=== PATIENT | female | born 1955 | race Hispanic/Latino ===

== ENCOUNTER 2017-09-25 19:20 | Emergency (ER) | payer OTHER, MEDICARE ==
[~2017-09-25 19:20] MED LIST: ASPI-1181 PO; ERGO500014 PO; ESCI10TA PO; ESOM20CA31 PO; LISI10TA7 PO; PROG100C6 PO; SOLI5 PO; TRAM50TA4 PO
[2017-09-25 20:02] LABS: BASOPHILS % (AUTO) 0.8 % (0.0-5.0); EOSINOPHILS % (AUTO) 4.3 % (0.0-8.0); HEMATOCRIT 41.3 % (36-48); LYMPHOCYTES % (AUTO) 19.6 % (21.0-51.0); MEAN CORPUSCULAR HEMOGLOBIN 30.2 pg (27.0-33.0); MONOCYTES % (AUTO) 4.6 % (3.0-13.0); NEUTROPHILS % (AUTO) 70.7 % (40.0-77.0); PLATELET COUNT (AUTO) 182 K/uL (130-400); RED BLOOD CELL COUNT(AUTO) 4.64 MIL/uL (4.00-5.50); RED CELL DISTRIBUTION WIDTH 13.5 % (11.0-15.5); WHITE BLOOD COUNT (AUTO) 9.7 K/uL (4.8-10.8)
[2017-09-25 20:09] LABS: POTASSIUM 4.1 mmol/L (3.5-5.1)
[2017-09-25] MEDS ORDERED: ASPIRIN 325 MG TABLET ONE (20:21)
[2017-09-25] MEDS ORDERED: NITROGLYCERIN 0.4 MG SL TAB SL ONE (20:21)
[2017-09-25 20:23] LABS: ALBUMIN 2.8 g/dL (3.5-5.0); BILIRUBIN,TOTAL 0.4 mg/dL (0.2-1.0); CREATINE KINASE MB 0.6 ng/mL (0.5-3.6); TOTAL PROTEIN, SERUM 6.5 g/dL (6.0-8.3)
[2017-09-25] MEDS ORDERED: MAGNESIUM HYDROXIDE 30 ML/UDCUP ONE (20:38)
[2017-09-25] MEDS ORDERED: LIDOCAINE HCL 2% VISCOUS 15 ML UDCUP ONE (20:38)
[2017-09-25] MEDS ORDERED: FAMOTIDINE 20MG TAB 20 MG TAB ONE (23:27)
== END 2017-09-26 00:22 | disposition home or self-care (01) ==
LOC: EDH 19:20
DX: K21.0 Gastro-esophageal reflux disease with esophagitis (principal); J06.9 Acute upper respiratory infection, unspecified; I10 Essential (primary) hypertension; F41.9 Anxiety disorder, unspecified; Z90.49 Acquired absence of other specified parts of digestive tract; Z87.891 Personal history of nicotine dependence
CPT/HCPCS: 36415; 71045; 80053; 82550; 82553; 84484; 85025; 87804; 93005; 93970

== ENCOUNTER 2017-12-16 00:13 | Observation (INO) | payer OTHER, MEDICARE ==
[~2017-12-16] VITALS: Ht 157.5 cm; Wt 147.4 kg
[2017-12-16] MEDS ORDERED: ONDANSETRON HCL 4 MG/2 ML VIAL ONE (01:18)
[2017-12-16] MEDS ORDERED: ASPIRIN 325 MG TABLET ONE (01:18)
[2017-12-16] MEDS ORDERED: DiphenhydrAMINE HCL 50 MG/ML VIAL ONE (01:18)
[2017-12-16] MEDS ORDERED: NITROGLYCERIN 1GM/1 INCH PACKET TD ONE (01:19)
[2017-12-16 01:44] LABS: BASOPHILS % (AUTO) 0.8 % (0.0-5.0); EOSINOPHILS % (AUTO) 4.7 % (0.0-8.0); HEMATOCRIT 42.3 % (36-48); LYMPHOCYTES % (AUTO) 18.8 % (21.0-51.0); MEAN CORPUSCULAR HEMOGLOBIN 30.8 pg (27.0-33.0); MEAN CORPUSCULAR HGB CONC 33.7 g/dL (32.0-36.0); MEAN CORPUSCULAR VOLUME 91.2 fL (79-99); MONOCYTES % (AUTO) 6.5 % (3.0-13.0); NEUTROPHILS % (AUTO) 69.2 % (40.0-77.0); NUCLEATED RED BLOOD CELLS 0.1 % (0.0-0.19); PLATELET COUNT (AUTO) 201 K/uL (130-400); RED BLOOD CELL COUNT(AUTO) 4.63 MIL/uL (4.00-5.50); RED CELL DISTRIBUTION WIDTH 13.8 % (11.0-15.5); WHITE BLOOD COUNT (AUTO) 11.5 K/uL (4.8-10.8)
[2017-12-16 01:49] LABS: CREATININE 1.4 mg/dL (0.5-1.5); POTASSIUM 4.6 mmol/L (3.5-5.1)
[2017-12-16 02:02] LABS: ALBUMIN 3.3 g/dL (3.5-5.0); BILIRUBIN,TOTAL 0.3 mg/dL (0.2-1.0); CREATINE KINASE MB 6.4 ng/mL (0.5-3.6); TOTAL PROTEIN, SERUM 7.1 g/dL (6.0-8.3)
[2017-12-16 02:20] LABS: APPEARANCE,URINE Cloudy (CLEAR); BILIRUBIN,URINE Negative (NEGATIVE); COLOR,URINE Yellow (YELLOW); GLUCOSE, URINE (UA) Negative (NEGATIVE); KETONES,URINE Negative (NEGATIVE); LEUKOCYTE ESTERASE ,URINE Small (NEGATIVE); NITRATE,URINE Negative (NEGATIVE); OCCULT BLOOD,URINE Negative (NEGATIVE); PROTEIN,URINE Negative (NEGATIVE)
[2017-12-16 02:27] LABS: AMORPHOUS SEDIMENT,UR Moderate /LPF (None Seen); BACTERIA,URINE Moderate /HPF (None Seen); MUCUS,URINE Moderate LPF (None Seen); RBC,URINE 0-1 /HPF (0-1); SQUAMOUS EPITHELIAL CELL,UR Moderate /HPF (0-2)
[2017-12-16] MEDS ORDERED: SODIUM CHLORIDE 0.9% 1000ML 1,000 ML IV ONE (02:39)
[2017-12-16] MEDS ORDERED: METHYLPREDNISOLONE SOD SUCC 125MG/2ML VIAL ONE (03:34)
[2017-12-16] MEDS: DIPHENHYDRAMINE HCL 25 MG CAPSULE PO SCH ×3 (08:13→21:11)
[2017-12-16] MEDS: METHYLPREDNISOLONE SOD SUCC 40MG/ML 1ML IVP SCH ×2 (08:13→12:00)
[2017-12-16 08:26] VITALS: BP 141/69
[2017-12-16 12:31] VITALS: BP 124/62
[2017-12-16 15:40] LABS: AMPHET/METH SCREEN,URINE NEGATIVE (NEGATIVE); BARBITURATE SCREEN, URINE NEGATIVE (NEGATIVE); BENZODIAZEPINES SCREEN,URINE NEGATIVE (NEGATIVE); CANNABINOID SCREEN,URINE NEGATIVE (NEGATIVE); COCAINE SCREEN,URINE POSITIVE (NEGATIVE); OPIATE SCREEN,URINE NEGATIVE (NEGATIVE); PHENCYCLIDINE SCREEN,URINE NEGATIVE (NEGATIVE)
[2017-12-16 16:00] VITALS: BP 149/74
[2017-12-16 19:25] VITALS: BP 156/76
[2017-12-16 23:20] VITALS: BP 149/85
[2017-12-17 03:45] VITALS: BP 134/70
[2017-12-17] MEDS ORDERED: TRAMADOL HCL 50 MG TABLET PO PRN (05:30)
[2017-12-17 08:42] VITALS: BP 186/69
[2017-12-17] MEDS ORDERED: CITALOPRAM 20 MG TABLET PO SCH (09:00)
[2017-12-17] MEDS ORDERED: LISINOPRIL 10 MG TABLET PO SCH (09:00)
[2017-12-17] MEDS: DIPHENHYDRAMINE HCL 25 MG CAPSULE PO SCH (09:07)
[2017-12-17 12:00] VITALS: BP 169/84
== END 2017-12-17 13:20 | disposition home or self-care (01) ==
LOC: EDH 00:13 → EDHIP 03:36 → 4BH 06:53
PROVIDERS: ADMIT Internal Medicine Infectious Disease; ATTEND Internal Medicine Infectious Disease
DX: T78.1XXA Other adverse food reactions, not elsewhere classified, initial encounter (principal); X58.XXXA Exposure to other specified factors, initial encounter; E66.01 Morbid (severe) obesity due to excess calories; D72.829 Elevated white blood cell count, unspecified; E11.9 Type 2 diabetes mellitus without complications; I10 Essential (primary) hypertension; K21.9 Gastro-esophageal reflux disease without esophagitis; M62.82 Rhabdomyolysis; F14.10 Cocaine abuse, uncomplicated; F32.9 Major depressive disorder, single episode, unspecified; Z96.653 Presence of artificial knee joint, bilateral; Z79.899 Other long term (current) drug therapy
CPT/HCPCS: 36415; 71045; 80053; 80305; 81001; 82550; 82553; 83690; 83880; 84484 ×2; 85025; 93005 ×2; 96374; 99285; G0378 ×34; J1200; J2405; J2920; J2930; J7030; Q0163 ×4

== ENCOUNTER 2018-06-30 16:31 | Emergency (ER) | payer OTHER, MEDICARE ==
[2018-06-30] MEDS ORDERED: ACETAMINOPHEN-CODEINE 300/30MG TAB ONE (17:33)
[2018-06-30 17:39] LABS: BASOPHILS % (AUTO) 0.7 % (0.0-5.0); EOSINOPHILS % (AUTO) 2.3 % (0.0-8.0); HEMATOCRIT 41.7 % (36-48); LYMPHOCYTES % (AUTO) 19.7 % (21.0-51.0); MEAN CORPUSCULAR HEMOGLOBIN 30.2 pg (27.0-33.0); MEAN CORPUSCULAR VOLUME 91.5 fL (79-99); MONOCYTES % (AUTO) 5.7 % (3.0-13.0); NEUTROPHILS % (AUTO) 71.6 % (40.0-77.0); PLATELET COUNT (AUTO) 170 K/uL (130-400); RED BLOOD CELL COUNT(AUTO) 4.55 MIL/uL (4.00-5.50); RED CELL DISTRIBUTION WIDTH 14.1 % (11.0-15.5); WHITE BLOOD COUNT (AUTO) 8.5 K/uL (4.8-10.8)
[2018-06-30] MEDS ORDERED: IBUPROFEN 600 MG TABLET ONE (17:49)
== END 2018-06-30 19:05 | disposition home or self-care (01) ==
LOC: EDH 16:31
DX: N63.20 Unspecified lump in the left breast, unspecified quadrant (principal); Z87.891 Personal history of nicotine dependence; Z88.5 Allergy status to narcotic agent; Z88.2 Allergy status to sulfonamides; Z88.8 Allergy status to other drugs, medicaments and biological substances
CPT/HCPCS: 36415; 76641; 85025; 93005

== ENCOUNTER → 2018-11-20 | Outpatient (CLI) | payer OTHER, MEDICARE | END | disposition home or self-care (01) | LOC: RAH 11:43 | PROVIDERS: ATTEND Internal Medicine | DX: M47.22 Other spondylosis with radiculopathy, cervical region (principal); K80.20 Calculus of gallbladder without cholecystitis without obstruction; M47.815 Spondylosis without myelopathy or radiculopathy, thoracolumbar region; I10 Essential (primary) hypertension | CPT/HCPCS: 71046; 72040 ==

== ENCOUNTER 2018-11-25 07:50 | Day surgery (SDC) | payer OTHER, MEDICARE ==
[~2018-11-25] VITALS: Ht 157.5 cm; Wt 136.1 kg
[2018-11-25] VITALS (8 sets, daily range): BP systolic 142–177; BP diastolic 52–94
[~2018-11-25 07:50] MED LIST changes: +MOBIC; +SODIUM CHLORIDE 0.9% 1000ML 1,000 ML IV ONE; -TRAM50TA4 PO
--- NOTE | 2018-11-25 10:55 | NUR ---
GAS PT TO RESTROOM. EXPRESSED AIR WITH SLIGHT BM. FEELS BETTER
--- NOTE | 2018-11-25 11:00 | NUR ---
HEADACHE PT C/O HEADACHE. STATES SHE DRINKS COFFEE IN AM DAILY. INFORMED Krysten DEE CRNA. NO ORDERS RECEIVED.
== END 2018-11-25 11:25 | disposition home or self-care (01) ==
LOC: DAH 07:50 → ENDO 07:50
PROVIDERS: ATTEND Internal Medicine
DX: K59.00 Constipation, unspecified (principal); K64.1 Second degree hemorrhoids; K57.30 Diverticulosis of large intestine without perforation or abscess without bleeding; Z86.010 Personal history of colon polyps; E11.9 Type 2 diabetes mellitus without complications; G47.33 Obstructive sleep apnea (adult) (pediatric); E66.01 Morbid (severe) obesity due to excess calories; Z88.8 Allergy status to other drugs, medicaments and biological substances; K29.50 Unspecified chronic gastritis without bleeding; F32.9 Major depressive disorder, single episode, unspecified; I10 Essential (primary) hypertension; F41.9 Anxiety disorder, unspecified; Z79.899 Other long term (current) drug therapy; Z98.890 Other specified postprocedural states; Z68.44 Body mass index [BMI] 60.0-69.9, adult
CPT/HCPCS: 43239; 45378; 82948 ×2; 88305; A4606; J7030

== ENCOUNTER 2018-11-26 16:02 | Emergency (ER) | payer OTHER, MEDICARE ==
[~2018-11-26 16:02] MED LIST changes: -SODIUM CHLORIDE 0.9% 1000ML 1,000 ML IV ONE
[2018-11-26] MEDS ORDERED: ONDANSETRON HCL 4 MG/2 ML VIAL ONE (16:16)
[2018-11-26 16:20] LABS: APPEARANCE,URINE Clear (CLEAR); BILIRUBIN,URINE Negative (NEGATIVE); COLOR,URINE Yellow (YELLOW); GLUCOSE, URINE (UA) Negative (NEGATIVE); KETONES,URINE Negative (NEGATIVE); LEUKOCYTE ESTERASE ,URINE Negative (NEGATIVE); NITRATE,URINE Negative (NEGATIVE); OCCULT BLOOD,URINE Nonhemolyzed Trace (NEGATIVE); PROTEIN,URINE Negative (NEGATIVE); UROBILINOGEN,URINE 0.2 mg/dL (0.2-1.0)
[2018-11-26 16:49] LABS: BACTERIA,URINE Few /HPF (None Seen); RBC,URINE 0-1 /HPF (0-1)
[2018-11-26 16:50] LABS: WBC,URINE 0-1 /HPF (0-1)
[2018-11-26] MEDS ORDERED: SODIUM CHLORIDE 0.9% 1000ML 1,000 ML IV ONE (17:11)
[2018-11-26] MEDS ORDERED: KETOROLAC TROMETHAMINE 15MG/ML ONE (17:11)
[2018-11-26 17:17] LABS: BASOPHILS % (AUTO) 0.5 % (0.0-5.0); EOSINOPHILS % (AUTO) 3.5 % (0.0-8.0); HEMATOCRIT 40.6 % (36-48); LYMPHOCYTES % (AUTO) 20.4 % (21.0-51.0); MEAN CORPUSCULAR HEMOGLOBIN 31.6 pg (27.0-33.0); MEAN CORPUSCULAR HGB CONC 34.3 g/dL (32.0-36.0); MONOCYTES % (AUTO) 6.5 % (3.0-13.0); NEUTROPHILS % (AUTO) 69.1 % (40.0-77.0); NUCLEATED RED BLOOD CELLS 0.1 % (0.0-0.19); PLATELET COUNT (AUTO) 153 K/uL (130-400); RED BLOOD CELL COUNT(AUTO) 4.41 MIL/uL (4.00-5.50); RED CELL DISTRIBUTION WIDTH 13.6 % (11.0-15.5); WHITE BLOOD COUNT (AUTO) 7.6 K/uL (4.8-10.8)
[2018-11-26] MEDS ORDERED: SIMETHICONE 80 MG TAB.CHEW ONE (17:23)
[2018-11-26] MEDS ORDERED: HYOSCYAMINE SULFATE 0.125 MG TAB.SUBL SL ONE (17:23)
[2018-11-26 17:27] LABS: CREATININE 0.8 mg/dL (0.5-1.5); POTASSIUM 4.4 mmol/L (3.5-5.1)
[2018-11-26 17:28] LABS: INR 1.05 (0.85-1.15); PARTIAL THROMBOPLASTIN TIME 29.2 SEC (26.3-35.5)
[2018-11-26 17:32] LABS: ALBUMIN 3.1 g/dL (3.5-5.0); BILIRUBIN,TOTAL 0.3 mg/dL (0.2-1.0); TOTAL PROTEIN, SERUM 6.5 g/dL (6.0-8.3)
== END 2018-11-26 18:13 | disposition home or self-care (01) ==
LOC: EDH 16:02
DX: R10.84 Generalized abdominal pain (principal); I10 Essential (primary) hypertension; F41.9 Anxiety disorder, unspecified; Z88.2 Allergy status to sulfonamides; Z88.8 Allergy status to other drugs, medicaments and biological substances; Z90.49 Acquired absence of other specified parts of digestive tract; Z98.890 Other specified postprocedural states
CPT/HCPCS: 36415; 71045; 74176; 80053; 81001; 82550; 83690; 84484; 85025; 85610; 85730; 93005; 96374; 96375; 99285; J1885; J2405; J7030

== ENCOUNTER → 2019-03-10 | Outpatient (CLI) | payer OTHER, MEDICARE ==
[~2019-03-10] MED LIST changes: +PROG100C11 PO; -PROG100C6 PO
== END | disposition home or self-care (01) ==
LOC: OIH 16:03
PROVIDERS: ATTEND Internal Medicine
DX: M19.021 Primary osteoarthritis, right elbow (principal)
CPT/HCPCS: 73070

== ENCOUNTER → 2019-05-28 | Outpatient (CLI) | payer OTHER, MEDICARE | END | disposition home or self-care (01) | LOC: OIH 12:21 | PROVIDERS: ATTEND Internal Medicine | DX: J18.0 Bronchopneumonia, unspecified organism (principal); I70.0 Atherosclerosis of aorta; M47.815 Spondylosis without myelopathy or radiculopathy, thoracolumbar region | CPT/HCPCS: 71046 ==

== ENCOUNTER → 2019-07-15 | Outpatient (CLI) | payer OTHER, MEDICARE | END | disposition home or self-care (01) | LOC: RAH 13:37 | PROVIDERS: ATTEND Internal Medicine | DX: M47.814 Spondylosis without myelopathy or radiculopathy, thoracic region (principal); I10 Essential (primary) hypertension | CPT/HCPCS: 71046 ==

== ENCOUNTER → 2020-10-10 | Outpatient (CLI) | payer OTHER, MEDICARE ==
[~2020-10-10] MED LIST changes: -ASPI-1181 PO; +ASPI-1443 PO; +LISI10TA24 PO; -LISI10TA7 PO
== END | disposition home or self-care (01) ==
LOC: OIH 11:09
PROVIDERS: ATTEND Internal Medicine
DX: D36.13 Benign neoplasm of peripheral nerves and autonomic nervous system of lower limb, including hip (principal); G57.62 Lesion of plantar nerve, left lower limb; G62.9 Polyneuropathy, unspecified; M79.672 Pain in left foot; M77.32 Calcaneal spur, left foot
CPT/HCPCS: 73630

== ENCOUNTER 2022-11-16 23:50 | Emergency (ER) | payer OTHER, MEDICARE ==
[~2022-11-16] VITALS: Ht 157.5 cm; Wt 122.5 kg
[~2022-11-16 23:50] MED LIST changes: +ASCO500T20 PO; +CHOL2000 PO; +ESCI20TA PO; +FURO20TA4 PO; +HYDR-4060 PO; +LISI40TA9 PO; +PANT40TA PO; +SOLI10TA7 PO
[2022-11-17 02:15] VITALS: BP 149/87
[2022-11-17] MEDS ORDERED: HYDROCODONE/ACETAMINOPHEN 5/325 MG TAB PO ONE (06:00)
== END 2022-11-17 07:26 | disposition home or self-care (01) ==
LOC: EDH 23:50
DX: S50.01XA Contusion of right elbow, initial encounter (principal); G89.29 Other chronic pain; M79.601 Pain in right arm; I10 Essential (primary) hypertension; F32.A Depression, unspecified; F41.9 Anxiety disorder, unspecified; J45.909 Unspecified asthma, uncomplicated; Z90.49 Acquired absence of other specified parts of digestive tract; Z79.82 Long term (current) use of aspirin; Z79.899 Other long term (current) drug therapy; Z98.890 Other specified postprocedural states; Z88.5 Allergy status to narcotic agent; Z88.8 Allergy status to other drugs, medicaments and biological substances; W18.39XA Other fall on same level, initial encounter; Y93.01 Activity, walking, marching and hiking; Y92.89 Other specified places as the place of occurrence of the external cause; Y99.8 Other external cause status
CPT/HCPCS: 70450; 73080

== ENCOUNTER 2023-04-03 18:46 | Emergency (ER) | payer OTHER, MEDICARE ==
[~2023-04-03] VITALS: Ht 157.5 cm; Wt 135.2 kg
[2023-04-03] MEDS ORDERED: IBUP-1493 PO (20:23)
[2023-04-03] MEDS ORDERED: MORPHINE 2 MG SYG IM ONE (21:00)
[2023-04-03 21:18] VITALS: BP 154/89; PULSE 63; RESP 16; O2SAT 96
== END 2023-04-03 21:22 | disposition home or self-care (01) ==
LOC: EDH 18:46
DX: M25.511 Pain in right shoulder (principal); F41.9 Anxiety disorder, unspecified; F32.A Depression, unspecified; I10 Essential (primary) hypertension; J45.909 Unspecified asthma, uncomplicated; K21.9 Gastro-esophageal reflux disease without esophagitis; Z79.82 Long term (current) use of aspirin; Z79.890 Hormone replacement therapy; Z79.899 Other long term (current) drug therapy; Z88.5 Allergy status to narcotic agent; Z90.49 Acquired absence of other specified parts of digestive tract
CPT/HCPCS: 99283; 73030; 96372; J2270

== ENCOUNTER → 2023-06-03 | Outpatient (CLI) | payer OTHER, MEDICARE ==
[~2023-06-03] MED LIST changes: +IBUP-1493 PO
== END | disposition home or self-care (01) ==
LOC: OIH 15:42
PROVIDERS: ATTEND Internal Medicine
DX: M19.071 Primary osteoarthritis, right ankle and foot (principal); M19.011 Primary osteoarthritis, right shoulder; M24.9 Joint derangement, unspecified; M25.511 Pain in right shoulder; Z98.890 Other specified postprocedural states
CPT/HCPCS: 73030; 73620

== ENCOUNTER 2023-09-13 06:16 | Emergency (ER) | payer OTHER, MEDICARE ==
[~2023-09-13] VITALS: Ht 157.5 cm; Wt 134.7 kg
[2023-09-13] MEDS: KETOROLAC 30MG VIAL (30MG/ML) IVP ONE (07:43)
[2023-09-13] MEDS: ONDANSETRON 4MG INJ IVP ONE (07:43)
[2023-09-13 07:58] LABS: APPEARANCE,URINE CLEAR (CLEAR); BILIRUBIN,URINE NEGATIVE (NEGATIVE); COLOR,URINE LIGHT-YELLOW (YELLOW); GLUCOSE, URINE (UA) NEGATIVE (NEGATIVE); KETONES,URINE NEGATIVE (NEGATIVE); LEUKOCYTE ESTERASE ,URINE 25 Leu/uL (NEGATIVE); NITRATE,URINE NEGATIVE (NEGATIVE); OCCULT BLOOD,URINE NEGATIVE (NEGATIVE); PROTEIN,URINE NEGATIVE (NEGATIVE); UROBILINOGEN,URINE 0.2 mg/dL (0.2-1.0)
[2023-09-13 07:59] LABS: ADD UA MICROSCOPIC YES
[2023-09-13 08:01] LABS: SQUAMOUS EPITHELIAL CELL,UR RARE /HPF (0-2); WBC,URINE 0-1 /HPF (0-1)
[2023-09-13] MEDS: MORPHINE 4 MG SYG IVP ONE (08:28)
[2023-09-13] MEDS: 0.9%NACL 1000ML 1,000 ML IV ONE (08:28)
[2023-09-13 08:39] LABS: BASOPHILS # (AUTO) 0.03 K/uL (0.00-0.20); BASOPHILS % (AUTO) 0.4 % (0.0-5.0); EOSINOPHILS # (AUTO) 0.24 K/uL (0.00-0.70); EOSINOPHILS % (AUTO) 2.8 % (0.0-8.0); IMMATURE GRANULOCYTE ABSOLUTE 0.04 K/uL (0-1); LYMPHOCYTES # (AUTO) 1.2 K/uL (1.0-4.8); LYMPHOCYTES % (AUTO) 13.7 % (21.0-51.0); MEAN CORPUSCULAR HEMOGLOBIN 28.6 pg (27.0-33.0); MEAN CORPUSCULAR HGB CONC 30.7 g/dL (32.0-36.0); MEAN CORPUSCULAR VOLUME 93.2 fL (79-99); MONOCYTES # (AUTO) 0.6 K/uL (0.1-1.0); MONOCYTES % (AUTO) 6.7 % (3.0-13.0); NEUTROPHILS # (AUTO) 6.5 K/uL (1.8-7.7); NEUTROPHILS % (AUTO) 75.9 % (40.0-77.0); PLATELET COUNT (AUTO) 162 K/uL (130-400); RED BLOOD CELL COUNT(AUTO) 3.22 MIL/uL (4.00-5.50); RED CELL DISTRIBUTION WIDTH 14.8 % (11.0-15.5); WHITE BLOOD COUNT (AUTO) 8.5 K/uL (4.8-10.8)
[2023-09-13 08:56] LABS: BILIRUBIN,TOTAL 0.3 mg/dL (0.2-1.0); CREATININE 1.3 mg/dL (0.5-1.0); POTASSIUM 4.8 mmol/L (3.5-5.1); TOTAL PROTEIN, SERUM 6.3 g/dL (6.0-8.3)
[2023-09-13] MEDS: MORPHINE 2 MG SYG IVP ONE (10:57)
[2023-09-13 13:38] VITALS: BP 133/82; PULSE 95; RESP 18; O2SAT 97
[2023-09-13] MEDS: LIDOCAINE/PRILOCAINE CREAM 5GM TUBE TP ONE (14:19)
[2023-09-13] MEDS: GABAPENTIN 300 MG CAPSULE ONE (14:19)
[2023-09-13] MEDS ORDERED: GABA300C PO (14:24)
[2023-09-13] MEDS ORDERED: VALA100031 PO (14:24)
[2023-09-13] MEDS: LIDOCAINE/PRILOCAINE CREAM 30 GM TUBE TP SCH (14:30)
[2023-09-13] MEDS: GABAPENTIN 300 MG CAPSULE PO SCH (14:30)
== END 2023-09-13 14:55 | disposition home or self-care (01) ==
LOC: EDH 06:16
DX: B02.9 Zoster without complications (principal); R10.32 Left lower quadrant pain; I10 Essential (primary) hypertension; F41.9 Anxiety disorder, unspecified; F32.A Depression, unspecified; I48.91 Unspecified atrial fibrillation; J45.909 Unspecified asthma, uncomplicated; K21.9 Gastro-esophageal reflux disease without esophagitis; Z79.82 Long term (current) use of aspirin; Z79.899 Other long term (current) drug therapy; Z90.49 Acquired absence of other specified parts of digestive tract; Z88.5 Allergy status to narcotic agent; Z88.8 Allergy status to other drugs, medicaments and biological substances; Z90.710 Acquired absence of both cervix and uterus; Z98.890 Other specified postprocedural states
CPT/HCPCS: 99285; 74177; 96374; 96375; 96361; 80053; 83690; 85025; 81001; 36415; 96376; 74176; J2270 ×2; J7030; J2405; J1885; J3490

== ENCOUNTER → 2024-01-22 | Outpatient (CLI) | payer OTHER, MEDICARE ==
[~2024-01-22] MED LIST changes: +GABA300C PO; +VALA100031 PO
[2024-01-22 16:56] LABS: CREATININE 1.6 mg/dL (0.5-1.0); MAGNESIUM 1.8 mg/dL (1.80-2.40); POTASSIUM 4.9 mmol/L (3.5-5.1)
== END | disposition home or self-care (01) ==
LOC: LAB 14:19
PROVIDERS: ATTEND Internal Medicine Cardiovascular Disease
DX: I50.32 Chronic diastolic (congestive) heart failure (principal); I48.3 Typical atrial flutter
CPT/HCPCS: 36415; 80048; 83735; 83880

== ENCOUNTER → 2024-02-03 | Outpatient (CLI) | payer OTHER, MEDICARE ==
[2024-02-03 12:47] LABS: CREATININE 1.5 mg/dL (0.5-1.0)
== END | disposition home or self-care (01) ==
LOC: LAB 10:20
PROVIDERS: ATTEND Internal Medicine Cardiovascular Disease
DX: I50.32 Chronic diastolic (congestive) heart failure (principal)
CPT/HCPCS: 36415; 80048; 83880

== ENCOUNTER 2024-03-05 08:04 | Observation (INO) | payer OTHER, MEDICARE ==
[2024-03-03 10:46] LABS: BASOPHILS # (AUTO) 0.03 K/uL (0.00-0.20); BASOPHILS % (AUTO) 0.5 % (0.0-5.0); EOSINOPHILS # (AUTO) 0.42 K/uL (0.00-0.70); EOSINOPHILS % (AUTO) 6.4 % (0.0-8.0); HEMATOCRIT 37.2 % (36-48); IMMATURE GRANULOCYTE ABSOLUTE 0.02 K/uL (0-1); LYMPHOCYTES # (AUTO) 1.3 K/uL (1.0-4.8); MEAN CORPUSCULAR HGB CONC 29.8 g/dL (32.0-36.0); MEAN CORPUSCULAR VOLUME 90.5 fL (79-99); MONOCYTES # (AUTO) 0.6 K/uL (0.1-1.0); MONOCYTES % (AUTO) 8.5 % (3.0-13.0); NEUTROPHILS # (AUTO) 4.3 K/uL (1.8-7.7); NEUTROPHILS % (AUTO) 64.3 % (40.0-77.0); PLATELET COUNT (AUTO) 209 K/uL (130-400); RED BLOOD CELL COUNT(AUTO) 4.11 MIL/uL (4.00-5.50); RED CELL DISTRIBUTION WIDTH 16.9 % (11.0-15.5); WHITE BLOOD COUNT (AUTO) 6.6 K/uL (4.8-10.8)
[2024-03-03 11:00] LABS: CREATININE 1.2 mg/dL (0.5-1.0); POTASSIUM 4.2 mmol/L (3.5-5.1)
[2024-03-03 11:01] LABS: INR 1.23 (0.85-1.15); PROTHROMBIN TIME 13.1 SEC (9.6-11.6)
[2024-03-03 11:02] LABS: PARTIAL THROMBOPLASTIN TIME 30.5 SEC (26.3-35.5)
[2024-03-03 11:27] VITALS: BP 135/60; PULSE 83; RESP 18; TEMP 97.5
[~2024-03-05] VITALS: Ht 160 cm; Wt 126.0 kg
[2024-03-05] VITALS (16 sets, daily range): BP systolic 91–156; BP diastolic 36–94; PULSE 42–61; RESP 9–23; TEMP 96.6–98.8; O2SAT 94–95
[~2024-03-05 08:04] MED LIST changes: +APIX5TAB PO; -ASCO500T20 PO; -ASPI-1443 PO; -CHOL2000 PO; +DRON400T7 PO; -ERGO500014 PO; -ESCI10TA PO; -ESCI20TA PO; +ESCI20TA38 PO; -ESOM20CA31 PO; +FLUT1BLS3 IH; -GABA300C PO; -HYDR-4060 PO; +HYDR-4068 PO; -IBUP-1493 PO; -LISI10TA24 PO; -LISI40TA9 PO; +MELO-106 PO; +METO-409 PO; -MOBIC; +PHARMACY COMMUNICATION MISC SCH; -PROG100C11 PO; -SOLI5 PO; -VALA100031 PO
[2024-03-05] MEDS: HYDROcodone/acetaMINOPHEN 10/325 MG TAB PO ONE (08:47)
[2024-03-05] MEDS: 0.9%NACL 1000ML 1,000 ML IV ONE (08:47)
[2024-03-05] MEDS ORDERED: HEParin 10,000 UNIT/10ML (1,000 UNIT/ML) VIAL ONE (09:45)
[2024-03-05] MEDS ORDERED: LIDOCAINE HCL 400MG/20ML VIAL ONE (09:45)
[2024-03-05] MEDS ORDERED: HEParin-NS 1,000 UNIT/500 ML 1,000 ML IV ONE (09:46)
[2024-03-05] MEDS ORDERED: MEPERIDINE-PF 25 MG/ML SYG ONE ×2 (10:14→10:41)
[2024-03-05] MEDS ORDERED: MIDAZOLAM HCL 1 MG/ML 2ML VIAL ONE ×3 (10:15→11:47)
[2024-03-05] MEDS ORDERED: ATROPINE 1MG SYG IVP ONE (11:10)
[2024-03-05] MEDS ORDERED: FENTanyl CITRate PF 50 MCG/1 ML 2ML VIAL ONE (11:39)
[2024-03-05] MEDS: HYDROcodone/acetaMINOPHEN 10/325 MG TAB PO PRN (13:53)
[2024-03-05] MEDS: APIXaban 5 MG TABLET PO SCH (20:59)
[2024-03-05] MEDS: furoSEMIDE 20 MG TABLET PO SCH (21:00)
[2024-03-06] VITALS (8 sets, daily range): BP systolic 99–136; BP diastolic 41–86; PULSE 47–54; RESP 17–49; TEMP 98.5–98.9; O2SAT 97
[2024-03-06] MEDS: MELOXICAM 7.5 MG TABLET PO SCH (08:20)
[2024-03-06] MEDS: metOPROLol sucCINATE 50 MG TAB.SR.24H PO SCH (08:22)
[2024-03-06] MEDS: PANTOPrazole 40 MG TAB DR PO SCH (08:24)
[2024-03-06] MEDS ORDERED: METO-409 PO (08:48)
== END 2024-03-06 09:45 | disposition home or self-care (01) ==
LOC: DAH 08:04 → DAHIP 08:05 → 2CV 13:21
PROVIDERS: ADMIT Internal Medicine Cardiovascular Disease; ATTEND Internal Medicine Cardiovascular Disease
DX: I48.3 Typical atrial flutter (principal); I11.0 Hypertensive heart disease with heart failure; I50.32 Chronic diastolic (congestive) heart failure; M54.16 Radiculopathy, lumbar region; F41.9 Anxiety disorder, unspecified; F32.A Depression, unspecified; Z79.899 Other long term (current) drug therapy
CPT/HCPCS: 80048; 85025; 85610; 85730; 36415; 93005 ×3; 93653; 93662; C1894 ×3; C1732 ×2; A4649 ×2; C1766; G0378 ×21; J3010; J3490; J7030; J1644 ×2; J2250 ×3; J2175 ×2; A4215; A4223 ×3; A4222; A4221; A4663; A4216; A4606; 99156; 99157; J0461

== ENCOUNTER → 2024-08-28 | Outpatient (CLI) | payer OTHER, MEDICARE ==
[~2024-08-28] MED LIST changes: +ATOR40TA69 PO; -DRON400T7 PO; -FURO20TA4 PO; +FURO40TA5 PO; +GABA-534 PO; +HYDR-3422 PO; +MELA5CAP PO; -MELO-106 PO; +METO-391 PO; -METO-409 PO; -PANT40TA PO; +PANT40TA54 PO; -PHARMACY COMMUNICATION MISC SCH; -SOLI10TA7 PO
[2024-08-28 22:22] VITALS: PULSE 60; RESP 14
[2024-08-28 23:00] VITALS: PULSE 56; RESP 14
[2024-08-28 23:30] VITALS: PULSE 52; RESP 16
[2024-08-29] VITALS (10 sets, daily range): PULSE 46–60; RESP 12–16
--- NOTE | 2024-08-29 03:56 | NUR ---
REFRESH CELLUVISC OPHTHALMIC GEL 1%,LUMIGAN OPHTHALMIC SOLUTION 0.01%,DOCUSATE SODIUM TAB 100MG,HYDROXYZINE 25 MG, ZOFRAN TAB 4 MG, FERROUS SULFATE TAB ,FOLIC ACID 1MG,VITAMIN B12 1000MCG,MELATONIN 5 MG, ATORVASTATIN CALCIUM 40 MG,LIDOCAINE EXTERNAL PATCH 5%,METOPROLOL SUCCINATE ER ORAL 50 MG, GABAPENTIN ORAL CAPSULE 300MG,ELIQUIS ORAL TAB 5 MG,HYDROCODONE-ACETAMINOPHEN TAB 10-325 MG,IPRATROPIUM-ALBUTEROL INHALATION SOLUTION,SPIRONOLACTONE TAB 25MG, ENTRESTO TAB 49-51 MG,LACTULOSE ORAL SOLUTION 20 MG/30ML Addendum: 08/29/24 at 0407 by CAROL STARR Amended: Links added.
== END | disposition home or self-care (01) ==
LOC: SLP 20:36
PROVIDERS: ATTEND Internal Medicine Cardiovascular Disease
DX: G47.33 Obstructive sleep apnea (adult) (pediatric) (principal)
CPT/HCPCS: 95810

== ENCOUNTER 2024-12-13 20:28 | Emergency (ER) | payer OTHER, MEDICARE ==
[~2024-12-13] VITALS: Ht 157.5 cm; Wt 134.7 kg
[~2024-12-13 20:28] MED LIST changes: -AZIT500T4 PO
--- NOTE | 2024-12-13 20:50 | EKG ---
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
[2024-12-13 20:53] LABS: BASOPHILS # (AUTO) 0.03 K/uL (0.00-0.20); BASOPHILS % (AUTO) 0.5 % (0.0-5.0); EOSINOPHILS # (AUTO) 0.56 K/uL (0.00-0.70); EOSINOPHILS % (AUTO) 8.4 % (0.0-8.0); HEMATOCRIT 38.3 % (36-48); IMMATURE GRANULOCYTE ABSOLUTE 0.02 K/uL (0-1); LYMPHOCYTES # (AUTO) 1.2 K/uL (1.0-4.8); LYMPHOCYTES % (AUTO) 17.7 % (21.0-51.0); MEAN CORPUSCULAR HEMOGLOBIN 30.1 pg (27.0-33.0); MEAN CORPUSCULAR HGB CONC 31.6 g/dL (32.0-36.0); MEAN CORPUSCULAR VOLUME 95.3 fL (79-99); MONOCYTES # (AUTO) 0.5 K/uL (0.1-1.0); MONOCYTES % (AUTO) 7.8 % (3.0-13.0); NEUTROPHILS # (AUTO) 4.4 K/uL (1.8-7.7); NEUTROPHILS % (AUTO) 65.3 % (40.0-77.0); PLATELET COUNT (AUTO) 172 K/uL (130-400); RED BLOOD CELL COUNT(AUTO) 4.02 MIL/uL (4.00-5.50); RED CELL DISTRIBUTION WIDTH 14.6 % (11.0-15.5); WHITE BLOOD COUNT (AUTO) 6.7 K/uL (4.8-10.8)
[2024-12-13 21:01] LABS: CREATININE 1.2 mg/dL (0.5-1.0); POTASSIUM 4.7 mmol/L (3.5-5.1)
[2024-12-13 21:05] LABS: MAGNESIUM 1.8 mg/dL (1.80-2.40)
[2024-12-13 21:14] LABS: B-TYPE NATRIURETIC PEPTIDE 97 pg/mL (0-100)
[2024-12-13 21:50] VITALS: PULSE 74; RESP 22
[2024-12-13] MEDS: IpraTROPium/alBUTERol SULFATE 3 ML SOLUTION IH ONE (21:50)
[2024-12-13] MEDS: Solu-medROL 125MG VIAL IVP ONE (22:10)
[2024-12-13 22:12] LABS: SARS-CoV-2, RNA, NAAT NEGATIVE SARS CoV-2 (NEGATIVE)
--- NOTE | 2024-12-13 22:16 | HMCIMG ---
EXAM: CR Chest, 1 View. CLINICAL HISTORY: Chest Pain COMPARISON: None provided. FINDINGS: LUNGS: There is no mass, infiltrate, or acute pulmonary abnormality. PLEURAL SPACES: No pleural effusion or pneumothorax. MEDIASTINUM: The cardiomediastinal silhouette is within normal limits. BONES: No aggressively appearing osseous lesion. Partially visualized glenohumeral joint replacement implant on the right side. IMPRESSION: No acute cardiopulmonary pathology is evident. /[place]
[2024-12-13 22:20] LABS: INFLUENZA TYPE A Negative For Type A (NEGATIVE); INFLUENZA TYPE B Negative For Type B (NEGATIVE)
--- NOTE | 2024-12-13 22:23 | ERN ---
General Chief Complaint: Shortness of Breath Stated Complaint: SHORTNESS OF BREATH, COUGH, CHEST PAIN Time Seen by MD: 20:34 Source: patient History of Present Illness Initial Comments Patient is a 69-year-old female coming in to be evaluated for cough and congestion. Per patient she was seen by her PCP but has been having a cough and coming in the better. She also states he was recently diagnosed with a asthma. Long with the patient states that she fell couple of days ago and has been having some right shoulder discomfort. Allergies: Coded Allergies: No Known Drug Allergies (Unverified Allergy, Unknown, 07/04/24) Home Meds Active Scripts Prednisone (Prednisone) 20 Mg Tablet, 1 TAB PO BID for 5 Days, #10 TAB 0 Refills Prov:KAREEM SULTANA 10/22/24 Doxycycline Hyclate (Doxycycline Hyclate) 100 Mg Capsule, 1 CAP PO BID for 5 Days, #10 CAP 0 Refills Prov:KAREEM SULTANA 10/22/24 Reported Medications Ferrous Sulfate (Ferrous Sulfate) 325 Mg (65 Mg Iron) Tablet, 1 TAB PO DAILY 10/16/24 Sacubitril/Valsartan (Entresto 49 mg-51 mg Tablet) 49 Mg-51 Mg Tablet, 1 TAB PO BID 10/16/24 Solifenacin Succinate (Vesicare) 10 Mg Tablet, 10 MG PO BID, TAB 10/15/24 Melatonin (Melatonin) 5 Mg Capsule, 1 CAP PO HS PRN for SLEEP for 30 Days, #30 CAP 0 Refills 07/01/24 Hydroxyzine HCl (Hydroxyzine HCl) 50 Mg Tablet, 50 MG PO AD for ANXIETY, TAB 06/30/24 Furosemide (Furosemide) 40 Mg Tablet, 40 MG PO DAILY, TAB 06/30/24 Hydrocodone/Acetaminophen (Hydrocodon-Acetaminophn 10-325) 10 Mg-325 Mg Tablet, 1 TAB PO Q6HPRN PRN for pain for 30 Days, #120 TAB 0 Refills 06/30/24 Gabapentin (Gabapentin) 400 Mg Capsule, 300 MG PO TID, CAP 06/30/24 Atorvastatin Calcium (LIPITOR) 40 Mg Tablet, 40 MG PO DAILY, TAB 06/30/24 Pantoprazole Sodium (Pantoprazole Sodium) 40 Mg Tablet.dr, 1 TAB PO DAILY for 30 Days, #30 TAB 0 Refills 06/30/24 Apixaban (Eliquis) 5 Mg Tablet, 1 TAB PO BID for 30 Days, #60 TAB 0 Refills 04/10/24 Fluticasone/Umeclidin/Vilanter (Trelegy Ellipta 100-62.5-25) 100-62.5 Blst.w.dev, 1 EACH IH Q4HPRN PRN for SHORTNESS OF BREATH 03/03/24 Escitalopram Oxalate (Escitalopram Oxalate) 20 Mg Tablet, 20 MG PO HS, TAB 03/03/24 Past Medical History Past Medical History: A-Fib, Anxiety, Asthma, Depression, GERD, Hypertension Medical History Other: URINARY INCONTINENCE Past Surgical History: Hysterectomy, Cholecystectomy, Other, Surgical History Other: BILAT KNEE Family History Family History: Negative Social History Social History: Negative, Lives alone Female( History) History: Not Applicable : 3 Para: 3 Aborts: 0 ROS Dictation CONSTITUTIONAL: No chills, no fever, no weakness, no diaphoresis, no malaise. HEAD/FACE: No signs of trauma. EENT: No eye pain, no blurred vision, no tearing, no double vision, no ear pain, no ear discharge, no nose pain, no nasal congestion, no throat pain, no throat swelling, no mouth pain. RESPIRATORY: No cough, no orthopnea, SOB, no stridor, no wheezing. CARDIOVASCULAR: No chest pain, no edema, no palpitations, no syncope. GASTROINTESTINAL/ABDOMINAL: No abdominal pain, no constipation, no diarrhea, no nausea, no vomiting. GENITOURINARY: No abnormal discharge, no dysuria, no frequent urination, no hematuria. No complaints of pain in the genitals. MUSCULOSKELETAL: No back pain, no gout, no joint pain, no joint swelling, no muscle pain, no muscle stiffness, no neck pain. INTEGUMENTARY: No change in color, no change in hair/nails, no dryness, no lesion, no lumps, no rash. NEUROLOGICAL/PSYCH: No anxiety, not depressed, no emotional problem, no headache, no numbness, no pre-existing deficit, no history of seizures, no tremors, no weakness. HEMATOLOGIC/LYMPHATIC: Not anemic, no history of blood clots, no apparent bleeding, no bruising, glands not swollen. All Systems Negative, Except as Noted. Physical Exam Physical Exam Dictation VITAL SIGNS: Reviewed. GENERAL APPEARANCE: Alert, oriented x3, no acute distress, obese. HEAD AND FACE: Non-traumatic. EYES: PERRL, pink conjunctivas, eyelid no trauma, anterior chamber clear. EARS: Pinnas intact and no signs of trauma or erythema. Ear canals clear and no discharge. TMs no erythema. NOSE: No discharge, no bleeding. OROPHARYNX: Mouth normal, teeth no caries, tongue pink. Pharynx clear, no erythema. Tonsils no exudates, no abscesses noted. Mucous membrane moist. NECK: Supple, non-tender, no thyromegaly, no masses, no JVD, no bruits. BREAST: Deferred. CHEST: No tenderness, no crepitus, no paradoxical movement, no retractions. LUNGS: Clear, well-ventilated, symmetric, rales, wheezing, no rhonchi, no stridor, good breath sounds bilaterally. HEART: Regular rate, regular rhythm, no murmur, no gallops. VASCULAR: No peripheral edema. ABDOMEN: Soft, positive bowel sounds, nondistended, no guarding, nontender, no rebound, no masses no hepatomegaly, no splenomegaly, no Simon's sign, no hernias. RECTAL: Deferred. GENITAL: Deferred. NEUROLOGICAL: Normal speech, gross motor function intact, gross sensory function intact. MUSCULOSKELETAL: Neck nontender, full range of motion, back nontender, full range of motion. EXTREMITIES: Nontender, full range of motion. SKIN: Color pink, dry, no turgor, no rash, no lacerations, no abrasions, no contusions. LYMPHATICS: Deferred. Results Laboratory and Microbiology Lab and Micro Result Laboratory Tests Test 12/13/24 20:44 12/13/24 21:38 White Blood Count 6.7 K/uL (4.8-10.8) Red Blood Count 4.02 MIL/uL (4.00-5.50) Hemoglobin 12.1 g/dL (12.0-16.0) Hematocrit 38.3 % (36-48) Mean Corpuscular Volume 95.3 fL (79-99) Mean Corpuscular Hemoglobin 30.1 pg (27.0-33.0) Mean Corpuscular Hemoglobin Concent 31.6 g/dL (32.0-36.0) L Red Cell Distribution Width 14.6 % (11.0-15.5) Platelet Count 172 K/uL (130-400) Mean Platelet Volume 11.9 fL (7.5-10.5) H Immature Granulocyte % (Auto) 0.3 % (0-1) Neutrophils (%) (Auto) 65.3 % (40.0-77.0) Lymphocytes (%) (Auto) 17.7 % (21.0-51.0) L Monocytes (%) (Auto) 7.8 % (3.0-13.0) Eosinophils (%) (Auto) 8.4 % (0.0-8.0) H Basophils (%) (Auto) 0.5 % (0.0-5.0) Neutrophils # (Auto) 4.4 K/uL (1.8-7.7) Lymphocytes # (Auto) 1.2 K/uL (1.0-4.8) Monocytes # (Auto) 0.5 K/uL (0.1-1.0) Eosinophils # (Auto) 0.56 K/uL (0.00-0.70) Basophils # (Auto) 0.03 K/uL (0.00-0.20) Absolute Immature Granulocyte (auto 0.02 K/uL (0-1) Nucleated Red Blood Cells 0.0 % (0.0-0.19) Sodium Level 143 mmol/L (136-145) Potassium Level 4.7 mmol/L (3.5-5.1) Chloride Level 105 mmol/L (101-111) Carbon Dioxide Level 32 mmol/L (21-32) Blood Urea Nitrogen 38 mg/dL (7-18) H Creatinine 1.2 mg/dL (0.5-1.0) H Glomerular Filtration Rate Calc 49 mL/min (>90) Random Glucose 119 mg/dL (70-105) H Total Calcium 8.9 mg/dL (8.5-10.1) Magnesium Level 1.80 mg/dL (1.80-2.40) Troponin I High Sensitivity 9 ng/L (4-50) B-Type Natriuretic Peptide 97 pg/mL (0-100) Influenza Type A Antigen Negative For Type A Influenza Type B Antigen Negative For Type B SARS-CoV-2, RNA, NAAT NEGATIVE SARS CoV-2 Labs Reviewed?: Yes EKG/XRAY/US/CT/MRI EKG Comment 12/13/2024 time 8:45 p.m. Ventricular rate 62 Sinus rhythm PA [address] wave elevation or depression X-RAY Comment IMAGING REPORT Signed PATIENT: RONNY KESSLER MR#: [id number] : 1955 SEX: F AGE: 69 LOCATION: [facility] ORDER 34 STATUS: [facility] ER REPORT#: [id number] SERVICE 33 REASON: sob ORDERING PHYSICIAN: BRAVO DYER MD PROCEDURE: CXR1VW - CHEST 1VW EXAM: CR Chest, 1 View. CLINICAL HISTORY: Chest Pain COMPARISON: None provided. FINDINGS: LUNGS: There is no mass, infiltrate, or acute pulmonary abnormality. PLEURAL SPACES: No pleural effusion or pneumothorax. MEDIASTINUM: The cardiomediastinal silhouette is within normal limits. BONES: No aggressively appearing osseous lesion. Partially visualized glenohumeral joint replacement implant on the right side. IMPRESSION: No acute cardiopulmonary pathology is evident. /[place] DICTATED BY: TONYA HUI Jr., MD DATE: 12/13/242314 ELECTRONICALLY SIGNED BY: TONYA HUI Jr., MD DATE: 12/13/242314 MDM MDM: Differential diagnosis: URI, bronchitis, asthma, fall Rationale: Tests considered and ordered secondary to shared decision making include: Previous outside records reviewed: Old ER visits. Risk of complication and/or morbidity or mortality of patient management: None Medications-Per medication reconciliation Need for hospitalization: Patient does not meet criteria for hospitalization. Patient is a 69 female coming in complaining of a cough. Patient states that she was recently seen by her PCP diagnosed with a asthma. She states that the cough worse so she decided to come in for further evaluation. X-rays did not disclose acute findings neither did imaging studies. Patient will be discharged in stable condition with a diagnosis of URI. ED Course Orders Procedure Category Date Status Time Cbc With Differential LAB 12/13/24 Complete 20:34 Chest 1vw RAD 12/13/24 Resulted 20:34 12 Lead Ekg Tracing- EKG 12/13/24 Complete Technical 20:34 Magnesium LAB 12/13/24 Complete 20:34 Troponin I High LAB 12/13/24 Complete Sensitivity 20:34 Basic Metabolic Panel LAB 12/13/24 Complete 20:34 B-Type Natriuretic LAB 12/13/24 Complete Peptide 20:34 Ipratropium/Albuterol PHA 12/13/24 Complete Neb (Duoneb) 21:30 Methylprednisolone PHA 12/13/24 Complete Succ 125mg (Solu-Medr 21:30 Covid Rna Naat LAB 12/13/24 Complete 21:16 Influenza Type A & B, LAB 12/13/24 Complete Rapid 21:16 Shoulder Comp 2+Vws Rt RAD 12/13/24 Taken 22:10 Acetaminophen-Codeine PHA 12/13/24 Complete Elixer (Tylenol-Co 22:30 Albuterol 0.083% PHA 12/13/24 Complete 2.5mg/3ml (Proventil 22:30 12 Lead Ekg Tracing- EKG 12/13/24 Logged Technical 22:24 Sling SARTHAK 12/13/24 In Process 22:30 Albuterol 0.083% PHA 12/13/24 Complete 2.5mg/3ml (Proventil 22:28 Guaifenesin Sug-Fuad PHA 12/13/24 Complete 100 Mg/5ml (Robituss 23:00 Ibuprofen 600 Mg PHA 12/13/24 Complete Tablet (Motrin) 23:00 Current Medications Medications (Trade) Dose Ordered Sig/Joselin Route PRN Reason Start Time Stop Time Status Last Admin Dose Admin Acetaminophen/ Codeine Phosphate (TYLenol-coDEINE (120/12MG 5ML) ELIXIR) 5 ml ONCE ONCE PO 12/13/24 22:30 12/13/24 22:58 DC 12/13/24 22:52 Albuterol (DUOneb) 2 udvial ONCE ONCE IH 12/13/24 21:30 12/13/24 21:31 DC 12/13/24 21:50 Albuterol Sulfate (Proventil 0.083% 2.5mg/3ml) 2.5 mg STK-MED ONCE IH 12/13/24 22:28 12/13/24 22:34 DC Albuterol Sulfate (Proventil 0.083% 2.5mg/3ml) 5 mg ONCE ONCE IH 12/13/24 22:30 12/13/24 22:33 DC 12/13/24 22:47 Guaifenesin (RobiTUSSin SUGAR-FREE 100 MG/ 5 ML UDCUP) 200 mg ONCE ONCE PO 12/13/24 23:00 12/13/24 23:01 DC 12/13/24 23:17 Ibuprofen (moTRIN) 600 mg ONCE ONCE PO 12/13/24 23:00 12/13/24 23:01 DC Methylprednisolone Sodium Succinate (Solu-medROL 125MG) 125 mg ONCE ONCE IVP 12/13/24 21:30 12/13/24 21:31 DC 12/13/24 22:10 Vital Signs Date Time Temp Pulse Resp B/P (MAP) Pulse Ox O2 Delivery O2 Flow Rate FiO2 12/13/24 23:27 98.6 67 18 119/62 97 Room Air* 0 21 12/13/24 22:47 75 21 12/13/24 21:50 74 22 12/13/24 21:02 98.6 74 22 108/81 98 Room Air* 0 21 12/13/24 20:33 98.8 65 20 96 Room Air 0 DX & DISP Disposition: Discharge Departure Impression: Primary Impression: Acute asthma flare Additional Impression: Right shoulder strain Condition: Stable Scripts Azithromycin (Azithromycin) 500 Mg Tablet 1 TAB PO DAILY for 5 Days, #5 TAB 0 Refills Prov: BRAVO DYER MD 12/13/24 Additional Instructions: You have been reviewed in the emergency department at [facility] after presenting with chest pain. After considering your history, your risk factors, your EKG and your blood test troponins, have been found to be at very low risk less than (1 in 100) of having a major adverse cardiac event (like heart attack) in the near future. In the " low risk" group, the risks of doing further tests and treatment as the inpatient outweighs the benefits. In many patients in the low risk group for the test of any sort or unnecessary, however he should discuss this further with his general practitioner who will understand the medical and personal backgrounds better. Because we have never declared you" no risk" we would suggest. 1 returning for medical review if you have further episodes of chest pain/arm pain or other concerning symptoms like dizziness, collapse, palpitations or shortness of breath. 2. Following up with your local doctor who will consider the need for further testing and will also ensure that any modifiable risk factors you may have for heart disease are optimally managed. Patient will be discharged in stable condition at the moment discharge patient states , no chest pain Referrals: MERT KENNEDY MD (PCP) Time of Disposition: 23:35 BRAVO DYER MD Dec 13, 2024 22:23
[2024-12-13 22:47] VITALS: PULSE 75; RESP 21
[2024-12-13] MEDS: ALBUTEROL 0.083% 2.5 MG/3 ML INH IH ONE ×2 (22:47)
[2024-12-13] MEDS: acetaMINOPHEN/coDEINE 120/12MG 5ML PO ONE (22:52)
[2024-12-13] MEDS: guaiFENesin SUGAR-FREE 100 MG/5 ML UDCUP PO ONE (23:17)
[2024-12-13] MEDS: ibuPROFEN 600 MG TABLET PO ONE (23:18)
[2024-12-13 23:27] VITALS: BP 119/62; PULSE 67; RESP 18; TEMP 98.6; O2SAT 97
[2024-12-13] MEDS ORDERED: AZIT500T4 PO (23:35)
--- NOTE | 2024-12-13 23:41 | HMCIMG ---
EXAM: CR right Shoulder, 2 View. CLINICAL HISTORY: Status post fall. COMPARISON: None provided. FINDINGS: BONES: No acute fracture or aggressively appearing osseous lesion. JOINTS: No dislocation. There is a right shoulder replacement with an intact metallic implant. Acromioclavicular osteoarthritis. SOFT TISSUES: The soft tissues are unremarkable. IMPRESSION: No acute abnormality was evident on examination of the right shoulder. There is a right shoulder replacement with an intact metallic implant. Acromioclavicular osteoarthritis. /[place]
== END 2024-12-13 23:56 | disposition home or self-care (01) ==
LOC: EDH 20:28
DX: S46.911A Strain of unspecified muscle, fascia and tendon at shoulder and upper arm level, right arm, initial encounter (principal); J45.909 Unspecified asthma, uncomplicated; I48.91 Unspecified atrial fibrillation; F32.A Depression, unspecified; F41.9 Anxiety disorder, unspecified; I10 Essential (primary) hypertension; Z79.01 Long term (current) use of anticoagulants; Z79.52 Long term (current) use of systemic steroids; Z79.899 Other long term (current) drug therapy; Z90.49 Acquired absence of other specified parts of digestive tract; Z90.710 Acquired absence of both cervix and uterus; Z96.611 Presence of right artificial shoulder joint; Z20.822 Contact with and (suspected) exposure to COVID-19; X58.XXXA Exposure to other specified factors, initial encounter; Y93.89 Activity, other specified; Y92.89 Other specified places as the place of occurrence of the external cause; Y99.8 Other external cause status
CPT/HCPCS: 99285; 96374; 71045; 87635; 83735; 84484; 80048; 83880; 85025; 87804 ×2; 36415; 73030; 93005; 94640 ×2; J2919

== ENCOUNTER → 2024-12-13 | Outpatient (CLI) | payer OTHER, MEDICARE ==
[~2024-12-13] MED LIST changes: +AZIT500T4 PO; +DOXY100C5 PO; +FERR-72 PO; -METO-391 PO; +PRED20TA3 PO; +SACU1TAB7 PO; +SOLI10TA PO
== END | disposition home or self-care (01) ==
LOC: SLP 20:14
PROVIDERS: ATTEND Internal Medicine Cardiovascular Disease
DX: G47.33 Obstructive sleep apnea (adult) (pediatric) (principal)

== ENCOUNTER 2025-04-20 08:32 | Observation (INO) | payer OTHER, MEDICAID ==
[2025-04-20] VITALS (7 sets, daily range): BP systolic 127; BP diastolic 67; PULSE 60–70; RESP 20–24; TEMP 98.3; O2SAT 94–98
[~2025-04-20] VITALS: Ht 157.5 cm; Wt 143.0 kg
[~2025-04-20 08:32] MED LIST changes: +ALBU90AE IH; +CEFP200T14 PO; -DOXY100C5 PO; +ESCI-8 PO; -ESCI20TA38 PO; -FLUT1BLS3 IH; -HYDR-4068 PO; -MELA5CAP PO; -PRED20TA3 PO; -SACU1TAB7 PO
[2025-04-20 09:05] LABS: IMMATURE GRANULOCYTE ABSOLUTE 0.02 K/uL (0-1); NUCLEATED RED BLOOD CELLS 0.0 % (0.0-0.19); PLATELET COUNT (AUTO) 139 K/uL (130-400); RED BLOOD CELL COUNT(AUTO) 3.90 MIL/uL (4.00-5.50); RED CELL DISTRIBUTION WIDTH 13.2 % (11.0-15.5); WHITE BLOOD COUNT (AUTO) 6.5 K/uL (4.8-10.8)
[2025-04-20 09:23] LABS: ASPARTATE AMINOTRANSFERASE 20.0 U/L (10-37); CREATINE KINASE, TOTAL 83.0 U/L (21-232); CREATININE 1.1 mg/dL (0.5-1.0); GLOMERULAR FILTR. RATE CALC 54.0 mL/min (>90); GLUCOSE,RANDOM 114.0 mg/dL (70-105); SODIUM SERUM 139.0 mmol/L (136-145); TOTAL PROTEIN, SERUM 6.5 g/dL (6.0-8.3); UREA NITROGEN, BLOOD 43.0 mg/dL (7-18)
[2025-04-20] MEDS: 0.9% NACL 500ML IV.SOLN 500 ML IV ONE (09:33)
[2025-04-20 10:13] LABS: COVID19 (SARS ANTIGEN RAPID) PRESUMPTIVE NEGATIVE (NEGATIVE); INFLUENZA TYPE A Negative For Type A (NEGATIVE); INFLUENZA TYPE B Negative For Type B (NEGATIVE)
--- NOTE | 2025-04-20 10:33 | EKG ---
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
--- NOTE | 2025-04-20 10:35 | HMCIMG ---
EXAM: CR Chest, 1 View. CLINICAL HISTORY: cough COMPARISON: 12/13. FINDINGS: LUNGS: The lungs show no infiltrate or other acute finding. PLEURAL SPACES: No pleural effusion or pneumothorax. MEDIASTINUM: Cardiac size and mediastinal contours within normal limits. BONES: Right shoulder arthroplasty. IMPRESSION: 1. No acute cardiopulmonary findings. 2. Right shoulder arthroplasty. /[place]
[2025-04-20] MEDS ORDERED: ARTIFICAL TEARS SOL 15 ML OP PRN (11:00)
[2025-04-20] MEDS ORDERED: MAG/ALUM/SIMETH 30 ML UDCUP PO PRN (11:00)
[2025-04-20] MEDS ORDERED: NITROGLYCERIN 0.4 MG SL TAB SL PRN (11:00)
[2025-04-20] MEDS ORDERED: LIDOCAINE HCL 2% VISCOUS 30 ML, MAG/ALUM/SIMETH 30ML 30 ML, DICYCLOMINE HCL 20 MG PO PRN (11:00)
--- NOTE | 2025-04-20 11:02 | ERN ---
ED Note History of Present Illness Stated Complaint: SOB Chief Complaint: Shortness of Breath Time Seen by MD: 08:36 Dictation: 69-year-old female presenting to the emergency department with a history of asthma for shortness of breath and wheezing which began over the past two days patient reports cough and subjective fevers and nasal congestion clear not on any home O2. no abdominal pain. Allergies: Coded Allergies: hydromorphone (Unverified Allergy, Intermediate, 03/06/25) Home Meds Active Scripts Cefpodoxime Proxetil (Cefpodoxime Proxetil) 200 Mg Tablet, 1 TAB PO BID for 10 Days, #20 TAB 0 Refills Prov:SALDIVARSHEA AGACNP 03/08/25 Reported Medications Albuterol Sulfate (Proair Respiclick) 90 Mcg Aer.pow.ba, 90 MCG IH AD PRN for SHORTNESS OF BREATH 03/05/25 Escitalopram Oxalate (Escitalopram Oxalate) 10 Mg Tablet, 1 TAB PO DAILY for 30 Days, #30 TAB 0 Refills 03/05/25 Ferrous Sulfate (Ferrous Sulfate) 325 Mg (65 Mg Iron) Tablet, 1 TAB PO DAILY 10/16/24 Solifenacin Succinate (Vesicare) 10 Mg Tablet, 10 MG PO BID, TAB 10/15/24 Hydroxyzine HCl (Hydroxyzine HCl) 50 Mg Tablet, 50 MG PO AD for ANXIETY, TAB 06/30/24 Furosemide (Furosemide) 40 Mg Tablet, 40 MG PO DAILY, TAB 06/30/24 Gabapentin (Gabapentin) 400 Mg Capsule, 300 MG PO TID, CAP 06/30/24 Atorvastatin Calcium (LIPITOR) 40 Mg Tablet, 40 MG PO DAILY, TAB 06/30/24 Pantoprazole Sodium (Pantoprazole Sodium) 40 Mg Tablet.dr, 1 TAB PO DAILY for 30 Days, #30 TAB 0 Refills 06/30/24 Apixaban (Eliquis) 5 Mg Tablet, 1 TAB PO BID for 30 Days, #60 TAB 0 Refills 04/10/24 Past Medical History Past Medical History: Asthma, Bronchitis, Other Additional Past Medical Hx: URINARY INCONTINENCE Surgical History: Appendectomy, Hysterectomy, Cholecystectomy Surgical History Other: BILAT KNEE Family History: Negative Social History: Negative, Lives alone History: Not Applicable : 3 Para: 3 Aborts: 0 Review of System Dictation Constitutional: Per HPI Eyes: Negative for injury, pain,redness, and discharge ENT: Per HPI Cardiovascular: Negative for chest pain, palpitations, and edema Respiratory: Per HPI Abdomen/GI: Negative for abdominal pain, nausea, vomiting, diarrhea, and constipation Back: Negative for injury and pain : Negative for injury, bleeding and discharge MS/Extremity: Negative for injury and deformity Skin: Negative for rash, and discoloration Neuro: Negative for headache, weakness, numbness, tingling, and seizure Psych: Negative for suicide ideation, homicidal ideation, and hallucinations Initial Vital Sign VS Vital Signs Date Time Temp Pulse Resp B/P (MAP) Pulse Ox O2 Delivery O2 Flow Rate FiO2 04/20/25 08:38 98.4 69 18 167/86 97 Room Air 0 04/20/25 10:11 100 Physical Exam Dictation General: awake, alert, appears anxious Head/Face: Normocephalic, atraumatic Eyes: PERRL, EOMI, vision at baseline ENT: oral cavity clear, TMs clear, no signs of infection Neck: Trachea midline, supple, no nuchal rigidity Cardiovascular: RRR, normal S1/S2, No MRGs, no JVD Respiratory: Diminished bilateral breath sounds with wheezing and tachypnea Abdomen: Soft, non-tender, non-distended, normal bowel sounds, no guarding or rebound. Skin: Warm, dry, normal turgor, no rash MS/Extremity: Pulses equal, no cyanosis, neurovascular intact, FROM Neuro: COAx4, GCS 15, strength 5/5, CN 2-12 intact, normal cerebellar exam, normal gait, Psych: Normal behavior, mood, and affect normal Results (Laboratory/Radiology) Laboratory/Radiology Laboratory Tests Test 04/20/25 08:54 04/20/25 09:42 White Blood Count 6.5 K/uL (4.8-10.8) Red Blood Count 3.90 MIL/uL (4.00-5.50) L Hemoglobin 11.8 g/dL (12.0-16.0) L Hematocrit 37.2 % (36-48) Mean Corpuscular Volume 95.4 fL (79-99) Mean Corpuscular Hemoglobin 30.3 pg (27.0-33.0) Mean Corpuscular Hemoglobin Concent 31.7 g/dL (32.0-36.0) L Red Cell Distribution Width 13.2 % (11.0-15.5) Platelet Count 139 K/uL (130-400) Mean Platelet Volume 12.5 fL (7.5-10.5) H Immature Granulocyte % (Auto) 0.3 % (0-1) Neutrophils (%) (Auto) 62.6 % (40.0-77.0) Lymphocytes (%) (Auto) 24.1 % (21.0-51.0) Monocytes (%) (Auto) 6.4 % (3.0-13.0) Eosinophils (%) (Auto) 6.3 % (0.0-8.0) Basophils (%) (Auto) 0.3 % (0.0-5.0) Neutrophils # (Auto) 4.1 K/uL (1.8-7.7) Lymphocytes # (Auto) 1.6 K/uL (1.0-4.8) Monocytes # (Auto) 0.4 K/uL (0.1-1.0) Eosinophils # (Auto) 0.41 K/uL (0.00-0.70) Basophils # (Auto) 0.02 K/uL (0.00-0.20) Absolute Immature Granulocyte (auto 0.02 K/uL (0-1) Nucleated Red Blood Cells 0.0 % (0.0-0.19) Sodium Level 139 mmol/L (136-145) Potassium Level 3.9 mmol/L (3.5-5.1) Chloride Level 103 mmol/L (101-111) Carbon Dioxide Level 30 mmol/L (21-32) Blood Urea Nitrogen 43 mg/dL (7-18) H Creatinine 1.1 mg/dL (0.5-1.0) H Glomerular Filtration Rate Calc 54 mL/min (>90) Random Glucose 114 mg/dL (70-105) H Lactic Acid Level 1.8 mmol/L (0.8-2.5) Total Calcium 8.4 mg/dL (8.5-10.1) L Total Bilirubin 0.5 mg/dL (0.2-1.0) Direct Bilirubin 0.2 mg/dL (0.0-0.3) Aspartate Amino Transf (AST/SGOT) 20 U/L (10-37) Alanine Aminotransferase (ALT/SGPT) 20 U/L (12-78) Alkaline Phosphatase 206 U/L (50-136) H Total Creatine Kinase 83 U/L (21-232) # Troponin I High Sensitivity 12 ng/L (4-50) Total Protein 6.5 g/dL (6.0-8.3) Albumin 3.0 g/dL (3.5-5.0) L Influenza Type A Antigen Negative For Type A Influenza Type B Antigen Negative For Type B SARS-CoV-2 Antigen (Rapid) PRESUMPTIVE NEGATIVE Labs Reviewed?: Yes EKG Comment: Heart rate 59 normal sinus rhythm normal intervals no STEMI ED Course ED Course Orders Procedure Category Date Status Time Influenza Type A & B, LAB 04/20/25 Complete Rapid 08:39 12 Lead Ekg Tracing- EKG 04/20/25 Complete Technical 08:39 Basic Metabolic Panel LAB 04/20/25 Complete 08:39 Cbc With Differential LAB 04/20/25 Complete 08:39 Creatine Kinase, Total LAB 04/20/25 Complete 08:39 Hepatic Function Panel LAB 04/20/25 Complete 08:39 Troponin I High LAB 04/20/25 Complete Sensitivity 08:39 Chest 1vw RAD 04/20/25 Resulted 08:39 Covid19 (Sars Antigen LAB 04/20/25 Complete Rapid) 08:39 Blood Cult ROBERTO 04/20/25 In Process 08:39 Lactic Acid LAB 04/20/25 Complete 08:39 Methylprednisolone PHA 04/20/25 Complete Succ 125mg (Solu-Medr 08:39 Ipratropium/Albuterol PHA 04/20/25 Complete Neb (Duoneb) 08:39 0.9% Nacl 500ml PHA 04/20/25 Complete Iv.Soln (Ns 500ml 09:00 Arterial Blood Gas RT 04/20/25 Transmitted 09:43 Fentanyl Citrate Pf PHA 04/20/25 Complete 0.05 Mg/Ml (Fentanyl 09:43 Ondansetron 4mg Inj PHA 04/20/25 Complete (Zofran 4mg Inj) 09:43 Bipap Settings RT 04/20/25 Transmitted 09:44 Vital Signs(Adult CPOE 04/20/25 Transmitted Hospitalist) 10:52 Daily Weights CPOE 04/20/25 Transmitted 10:52 I&O Q Shift CPOE 04/20/25 Transmitted 10:52 Fever: Blood Cx X 2 CPOE 04/20/25 Transmitted 10:52 Famotidine 20mg Tab PHA 04/20/25 Transmitted (Pepcid 20mg Tab) 21:00 Diphenhydramine Hcl PHA 04/20/25 Transmitted (Benadryl Cap) 11:00 Diphenhydramine Hcl PHA 04/20/25 Transmitted (Benadryl Inj) 11:00 Acetaminophen 325 Tab PHA 04/20/25 Transmitted (Tylenol 325mg Tab 11:00 Acetaminophen 325 Tab PHA 04/20/25 Transmitted (Tylenol 325mg Tab 11:00 Ondansetron 4mg Inj PHA 04/20/25 Transmitted (Zofran 4mg Inj) 11:00 Zolpidem Tartrate 5 PHA 04/20/25 Transmitted Mg Tab (Ambien) 11:00 Mag/Alum/Simeth 30ml PHA 04/20/25 Transmitted (Maalox Plus 30ml) 11:00 Lactulose 20 Gm/30 Ml PHA 04/20/25 Transmitted Udcup (Constulose 11:00 Nitroglycerin 0.4mg PHA 04/20/25 Transmitted Sl Tab (Nitrostat) 11:00 Guaifenesin-Dm PHA 04/20/25 Transmitted 200/20mg 10ml 11:00 Ipratropium/Albuterol PHA 04/20/25 Transmitted Neb (Duoneb) 12:00 Procalcitonin LAB 04/20/25 Transmitted 10:52 Robitussin 200mg Q4h PHA 04/20/25 Transmitted Prn Cough 11:00 Imodium 2mg Po Q6h Prn PHA 04/20/25 Transmitted 11:00 Colace 100mg Po Bid PHA 04/20/25 Transmitted PRN 11:00 Miralax 17gm Po Daily PHA 04/20/25 Transmitted PRN 11:00 Xanax 0.5mg Po Q6h Prn PHA 04/20/25 Transmitted 11:00 Gi Cocktail 20ml Po PHA 04/20/25 Transmitted Q6h Prn 11:00 Artifical Tears 1drop PHA 04/20/25 Transmitted Q2h Prn 11:00 Cepacol 1 Lozenge Po PHA 04/20/25 Transmitted Q2h Prn 11:00 Admit Orders ADM 04/20/25 Transmitted 10:52 Activity: Bedrest CPOE 04/20/25 Transmitted With Brp 10:52 Consistent Carb DIET 04/20/25 Transmitted Lunch Advance Diet As CPOE 04/20/25 Transmitted Tolerated To: 10:52 Initiate SARTHAK 04/20/25 Transmitted Hyperglycemia Protoco 10:52 Current Medications Medications (Trade) Dose Ordered Sig/Joselin Route PRN Reason Start Time Stop Time Status Last Admin Dose Admin Albuterol (DUOneb) 1 udvial ONCE STAT IH 04/20/25 08:39 04/20/25 08:44 DC 04/20/25 09:04 Fentanyl Citrate (FENTanyl CITRate PF 50 MCG/ 1 ML 2ML VIAL) 50 mcg ONCE STAT IVP 04/20/25 09:43 04/20/25 09:46 DC 04/20/25 10:05 Methylprednisolone Sodium Succinate (Solu-medROL 125MG) 125 mg ONCE STAT IVP 04/20/25 08:39 04/20/25 08:44 DC 04/20/25 09:33 Ondansetron HCl (zoFRAN 4MG INJ) 4 mg ONCE STAT IVP 04/20/25 09:43 04/20/25 09:46 DC 04/20/25 10:05 Sodium Chloride 500 ml @ 0 mls/hr ONCE ONCE IV 04/20/25 09:00 04/20/25 09:01 DC 04/20/25 09:33 Vital Signs Date Time Temp Pulse Resp B/P (MAP) Pulse Ox O2 Delivery O2 Flow Rate FiO2 04/20/25 10:11 98.6 57 18 135/41 100 Partial Non-Rebreather+ 10 100 04/20/25 09:05 61 20 04/20/25 08:38 98.4 69 18 167/86 97 Room Air 0 Medical Decision Making MDM MDM: Differential diagnosis: Rationale: Tests considered and ordered secondary to shared decision making include: labs, ECG and radiology Previous outside records reviewed: Old ER visits. Risk of complication and/or morbidity or mortality of patient management: None Medications-Per medication reconciliation Need for hospitalization: Patient does meet criteria for hospitalization. Need for emergency major/minor surgery: No There are no social concerns with this patient. Prescription drug management Prescriptions will include symptomatic care Patient's prior external medical records from other ER visits were reviewed by me as indicated. Prior testing and results from previous visits were reviewed. Prior tests were taken into account with medical decision making and resource utilization, independent historian/historians were used to obtain complete medical history. I independently interpreted the test that were performed, results were reviewed by me and considered findings on radiology if ordered. Medical management and examination interpretation discussions were had by me with other qualified healthcare professionals as indicated for the patient's care. 69-year-old female with acute asthma exacerbation respiratory distress given nebs and pain meds for back pain, initial workup stable symptoms improving ad mitting for further care and evaluation. Critical Care Note Comment(s) Total critical care time was 33 minutes. Excluding time for procedures. Management of critically ill patient with concern for acute decompensation. M anagement included interpretation of laboratory values and imaging, hemodynamics, time for consultation with consultants and admitting physician. DX & DISP Disposition: Inpatient Departure Impression: Primary Impression: URI (upper respiratory infection) Additional Impressions: Acute asthma exacerbation, Acute respiratory distress Condition: Stable Referrals: MERT KENNEDY MD (PCP) PAULO RODRIGUEZ MD Apr 20, 2025 11:02
--- NOTE | 2025-04-20 13:28 | NUR ---
PT IS REQUESTING IV PAIN MEDICATION STATING THAT THE PO MEDICATIONS HURT HER ESOPHAGUS AND "SWOLLEN PANCREAS".INFORMED STRAP BUCKLER REBEKA. AWAITING ORDERS.
--- NOTE | 2025-04-20 13:44 | NUR ---
I INFORMED PATIENT THAT SHE CAN HAVE HER USUAL HYDROCODONE/TYLENOL PER ORDER NOW OR WAIT A FEW MORE MINUTES UNTIL EMERGENCY ROOM REGISTERED NURSE RESPONDS. PT DECLINED THE PO MEDICATION.
--- NOTE | 2025-04-20 14:11 | NUR ---
DCP:HOME Pt currently lives alone in her home. Pt receives $120 in SNAP benefits. Pt does have a walker and cane in her home that she uses to ambulate. Pt's sister Emily Munoz [phone] and brother are her providers. As per pt they work with her 30 hrs a week and they assist her with all ADLs, home management, and meals. PCP is Dr. Tramaine Parra and uses [facility] for any RX needs. At DC pt will want to go home and family can assist with transportation.
--- NOTE | 2025-04-20 14:28 | HP ---
[facility] HISTORY & PHYSICAL Date Patient Seen: Apr 20, 2025 Time of Visit: 14:27 Supervising Physician: Dr Damián Odonnell Primary Care Physician: [ ] Outpatient Specialists: [ ] Inpatient Consults: [ ] PROBLEM LIST: Obesity hyperventilation syndrome untreated Morbid obesity BMI 52.5 AFib on apixaban CKD stage 3 Hyperglycemia in a type 2 diabetic HPI: Patient is a 69-year-old female who presented to the emergency department reporting shortness of breath, progressive cough and wheezing starting 2 days ago. She has a past medical history of morbid obesity, hypertension, hyperlipidemia, atrial fibrillation. Patient denies any home O2 or CPAP at night. Patient was placed on nasal cannula then advance to a non-rebreather however patient refused. Time of evaluation she is satting 92% on room air. Labs are pending. On exam she has 2+ pitting edema to the lower extremities. Chest x-ray shows some vascular congestion we are pending a BNP. Along with a D-dimer an ultrasounds of the lower extremities. We are pending an ABG. Patient to be admitted to [facility] with telemetry. PAST MEDICAL HX: see above PAST SURGICAL HX: noncontributory SOCIAL HISTORY: No tobacco, ETOH, or illicit drug use Coded Allergies: hydromorphone (Unverified Allergy, Intermediate, 03/06/25) REVIEW OF SYSTEMS: 12 point ROS reviewed with patient. Pertinent positives mentioned above. Otherwise negative. PHYSICAL EXAM: GENERAL: alert, weak, awake oriented x 3 HEENT: EOMI, Sclera non icteric, moist mucosa NECK: Supple, no JVD, trachea midline LUNGS: Clear breath sounds bilaterally. No wheezes HEART: Regular rate and rhythm. Normal S1 and S2, without murmurs ABD: Abdomen soft, nontender. Bowel sounds present EXT: No clubbing cyanosis or edema NEURO: Alert and oriented to person, follows commands Vital Signs (last 8hr) Date Time Temp Pulse Resp B/P (MAP) Pulse Ox O2 Delivery O2 Flow Rate FiO2 04/20/25 11:48 98.6 66 18 147/41 98 Nasal Cannula* 4 N/A Partial Non-Rebreather+ 04/20/25 11:41 66 24 N/Cannula Low lpm 2.0 04/20/25 11:41 66 24 04/20/25 10:11 98.6 57 18 135/41 100 Partial Non-Rebreather+ 10 100 04/20/25 09:05 61 20 04/20/25 08:38 98.4 69 18 167/86 97 Room Air 0 LABS: Hematology Labs: Test 04/20/25 08:54 Range/Units White Blood Count 6.5 4.8-10.8 K/uL Red Blood Count 3.90 L 4.00-5.50 MIL/uL Hemoglobin 11.8 L 12.0-16.0 g/dL Hematocrit 37.2 36-48 % Mean Corpuscular Volume 95.4 79-99 fL Mean Corpuscular Hemoglobin 30.3 27.0-33.0 pg Mean Corpuscular Hemoglobin Concent 31.7 L 32.0-36.0 g/dL Red Cell Distribution Width 13.2 11.0-15.5 % Platelet Count 139 130-400 K/uL Mean Platelet Volume 12.5 H 7.5-10.5 fL Immature Granulocyte % (Auto) 0.3 0-1 % Neutrophils (%) (Auto) 62.6 40.0-77.0 % Lymphocytes (%) (Auto) 24.1 21.0-51.0 % Monocytes (%) (Auto) 6.4 3.0-13.0 % Eosinophils (%) (Auto) 6.3 0.0-8.0 % Basophils (%) (Auto) 0.3 0.0-5.0 % Neutrophils # (Auto) 4.1 1.8-7.7 K/uL Lymphocytes # (Auto) 1.6 1.0-4.8 K/uL Monocytes # (Auto) 0.4 0.1-1.0 K/uL Eosinophils # (Auto) 0.41 0.00-0.70 K/uL Basophils # (Auto) 0.02 0.00-0.20 K/uL Absolute Immature Granulocyte (auto 0.02 0-1 K/uL Nucleated Red Blood Cells 0.0 0.0-0.19 % Chemistry Labs: Test 04/20/25 08:54 Range/Units Sodium Level 139 136-145 mmol/L Potassium Level 3.9 3.5-5.1 mmol/L Chloride Level 103 101-111 mmol/L Carbon Dioxide Level 30 21-32 mmol/L Blood Urea Nitrogen 43 H 7-18 mg/dL Creatinine 1.1 H 0.5-1.0 mg/dL Glomerular Filtration Rate Calc 54 >90 mL/min Random Glucose 114 H 70-105 mg/dL Lactic Acid Level 1.8 0.8-2.5 mmol/L Total Calcium 8.4 L 8.5-10.1 mg/dL Total Bilirubin 0.5 0.2-1.0 mg/dL Direct Bilirubin 0.2 0.0-0.3 mg/dL Aspartate Amino Transf (AST/SGOT) 20 10-37 U/L Alanine Aminotransferase (ALT/SGPT) 20 12-78 U/L Alkaline Phosphatase 206 H 50-136 U/L Total Creatine Kinase 83 # 21-232 U/L Troponin I High Sensitivity 12 4-50 ng/L B-Type Natriuretic Peptide 99 0-100 pg/mL Total Protein 6.5 6.0-8.3 g/dL Albumin 3.0 L 3.5-5.0 g/dL Procalcitonin < 0.05 L 0.05-0.5 ng/mL DIAGNOSTICS / RADIOLOGY RESULTS: [ ] PLAN Patient pending admit to [facility] with telemetry We are encouraging patient to use her O2 Pending ABG, patient to be evaluated for hypoventilation syndrome. Likely needs home CPAP or greater Pending a BNP, if elevated we will resume Lasix D-dimer in ultrasound lower extremities are pending Patient will need a 6 minute walk prior to discharge Sliding scale insulin Diabetic diet NEURO: Minimize central acting medications as possible. Maintain fall precautions, adequate lighting during the day PULMONARY: Supplemental 02 as needed. Maintain aspiration precautions at all times CARDIOVASCULAR: Follow hemodynamics. Vital signs per facility protocol GI & NUTRITION: Continue with nutritional support. Continue stool softeners and laxatives as needed. KIDNEYS & ELECTROLYTES: Strict monitoring of intake, output and overall fluid balance. Avoid nephrotoxic medications to the extent possible. Medications to be dosed according to renal function. Monitor electrolytes and replace as needed ENDOCRINE: Maintain blood glucose between 100-180 at all times. Hypoglycemia protocol in place INFECTIOUS DISEASE: Trend temperature, WBC and procalcitonin level Follow cultures, deescalate antibiotics as soon as possible. Panculture if new onset fever ONCOLOGY/HEMATOLOGY/COAGULATION: Monitor for s/s of bleeding Monitor hemoglobin, coagulation studies as needed SKIN: Pressure ulcer prevention per facility protocol Specialty mattress ORTHO/REHAB: Continue PT/OT Prophylaxis: Continue GI and DVT prophylaxis Code Status: Full Resuscitation Disposition: TBD Other: Total patient care time exceeds 35 minutes excluding all procedures. EMILIANO STALEY PAC Apr 20, 2025 14:27
[2025-04-20] MEDS: DICYCLOMINE HCL 10 MG/5 ML ML PO ONE (15:09)
[2025-04-20] MEDS: LIDOCAINE HCL 2% VISCOUS 15 ML UDCUP PO ONE (15:10)
[2025-04-20] MEDS: MAG/ALUM/SIMETH 30 ML UDCUP PO ONE (15:10)
--- NOTE | 2025-04-20 15:43 | NUR ---
REPORT GIVEN TO NURSE BRENDA
[2025-04-20] MEDS: FAMOTIDINE 20MG TAB PO SCH (20:16)
[2025-04-20] MEDS: BENZOCAINE/MENTH/CETYLPYRD CL 1 EACH LOZENGE MM PRN (20:16)
[2025-04-20] MEDS: guaiFENesin-DM 200/20MG 10ML PO PRN (22:21)
[2025-04-21] VITALS (12 sets, daily range): BP systolic 114–155; BP diastolic 50–69; PULSE 62–80; RESP 16–22; TEMP 97.6–98.1; O2SAT 95–97
--- NOTE | 2025-04-21 12:31 | PN ---
[facility] PROGRESS NOTE Date Patient Seen: Apr 21, 2025 Time of Visit: 12:22 Supervising Physician: [Dr Odonnell Primary Care Physician: [ ] Outpatient Specialists: [ ] Inpatient Consults: [ ] PROBLEM LIST: Obesity hyperventilation syndrome untreated Class 3 Morbid obesity BMI 52.5 AFib on apixaban CKD stage 3 Hyperglycemia in a type 2 diabetic General anxiety disorder History of depression Hyperlipidemia INTERVAL HISTORY: Patient is a 69-year-old female who presented to the emergency department reporting shortness of breath, progressive cough and wheezing starting 2 days ago. She has a past medical history of morbid obesity, hypertension, hyperlipidemia, atrial fibrillation. Patient denies any home O2 or CPAP at night. Patient was placed on nasal cannula then advance to a non-rebreather however patient refused. Time of evaluation she is satting 92% on room air. Labs are pending. On exam she has 2+ pitting edema to the lower extremities. Chest x-ray shows some vascular congestion we are pending a BNP. Along with a D-dimer an ultrasounds of the lower extremities. We are pending an ABG. Patient to be admitted to [facility] with telemetry. 04/21 - Today patient is seen sitting up in bed continues to complain of shortness on breath, progressive cough and dyspnea with minimal exertion. Patient reports her wheezing is much improved. Currently patient's O2 sat is 97% on room air. No acute changes reported overnight. Requesting ABGs. We are still pending D-dimer and lower extremity Dopplers. PLAN: Telemetry monitoring Supplemental oxygen as needed Patient currently on room air BiPAP nightly and p.r.n. Pending ABG Pending BNP, if elevated we will resume Lasix Pending D-dimer results Pending bilateral lower extremity ultrasound Dopplers Resume Eliquis 6 minute walk test prior to discharge Diabetic diet PT evaluate and treat Out of bed to chair and ambulate Dispo: Home once medically stable for discharge REVIEW OF SYSTEMS: 12 point ROS reviewed with patient. Pertinent positives mentioned above. Otherwise negative. PHYSICAL EXAM: GENERAL: alert, weak, awake oriented x 3 HEENT: EOMI, Sclera non icteric, moist mucosa NECK: Supple, no JVD, trachea midline LUNGS: Clear breath sounds bilaterally. No wheezes HEART: Regular rate and rhythm. Normal S1 and S2, without murmurs ABD: Abdomen soft, nontender. Bowel sounds present EXT: No clubbing cyanosis or edema NEURO: Alert and oriented to person, follows commands Vital Signs (last 8hr) Date Time Temp Pulse Resp B/P (MAP) Pulse Ox O2 Delivery O2 Flow Rate FiO2 04/21/25 11:25 64 20 N/A Room Air 21 04/21/25 11:23 64 20 04/21/25 08:00 98.1 80 18 114/55 97 Room Air 04/21/25 06:57 67 20 N/A Room Air 04/21/25 06:53 67 21 LABS: Hematology Labs: Test 04/20/25 08:54 Range/Units White Blood Count 6.5 4.8-10.8 K/uL Red Blood Count 3.90 L 4.00-5.50 MIL/uL Hemoglobin 11.8 L 12.0-16.0 g/dL Hematocrit 37.2 36-48 % Mean Corpuscular Volume 95.4 79-99 fL Mean Corpuscular Hemoglobin 30.3 27.0-33.0 pg Mean Corpuscular Hemoglobin Concent 31.7 L 32.0-36.0 g/dL Red Cell Distribution Width 13.2 11.0-15.5 % Platelet Count 139 130-400 K/uL Mean Platelet Volume 12.5 H 7.5-10.5 fL Immature Granulocyte % (Auto) 0.3 0-1 % Neutrophils (%) (Auto) 62.6 40.0-77.0 % Lymphocytes (%) (Auto) 24.1 21.0-51.0 % Monocytes (%) (Auto) 6.4 3.0-13.0 % Eosinophils (%) (Auto) 6.3 0.0-8.0 % Basophils (%) (Auto) 0.3 0.0-5.0 % Neutrophils # (Auto) 4.1 1.8-7.7 K/uL Lymphocytes # (Auto) 1.6 1.0-4.8 K/uL Monocytes # (Auto) 0.4 0.1-1.0 K/uL Eosinophils # (Auto) 0.41 0.00-0.70 K/uL Basophils # (Auto) 0.02 0.00-0.20 K/uL Absolute Immature Granulocyte (auto 0.02 0-1 K/uL Nucleated Red Blood Cells 0.0 0.0-0.19 % Chemistry Labs: Test 04/20/25 08:54 Range/Units Sodium Level 139 136-145 mmol/L Potassium Level 3.9 3.5-5.1 mmol/L Chloride Level 103 101-111 mmol/L Carbon Dioxide Level 30 21-32 mmol/L Blood Urea Nitrogen 43 H 7-18 mg/dL Creatinine 1.1 H 0.5-1.0 mg/dL Glomerular Filtration Rate Calc 54 >90 mL/min Random Glucose 114 H 70-105 mg/dL Lactic Acid Level 1.8 0.8-2.5 mmol/L Total Calcium 8.4 L 8.5-10.1 mg/dL Total Bilirubin 0.5 0.2-1.0 mg/dL Direct Bilirubin 0.2 0.0-0.3 mg/dL Aspartate Amino Transf (AST/SGOT) 20 10-37 U/L Alanine Aminotransferase (ALT/SGPT) 20 12-78 U/L Alkaline Phosphatase 206 H 50-136 U/L Total Creatine Kinase 83 # 21-232 U/L Troponin I High Sensitivity 12 4-50 ng/L B-Type Natriuretic Peptide 99 0-100 pg/mL Total Protein 6.5 6.0-8.3 g/dL Albumin 3.0 L 3.5-5.0 g/dL Procalcitonin < 0.05 L 0.05-0.5 ng/mL DIAGNOSTICS / RADIOLOGY RESULTS: PATIENT: RONNY KESSLER MR#: [id number] : 1955 SEX: F AGE: 69 LOCATION: [facility] ORDER 0 STATUS: [facility] REPORT#: [id number] SERVICE 0839 REASON: cough ORDERING PHYSICIAN: PAULO RODRIGUEZ MD PROCEDURE: CXR1VW - CHEST 1VW EXAM: CR Chest, 1 View. CLINICAL HISTORY: cough COMPARISON: 12/13. FINDINGS: LUNGS: The lungs show no infiltrate or other acute finding. PLEURAL SPACES: No pleural effusion or pneumothorax. MEDIASTINUM: Cardiac size and mediastinal contours within normal limits. BONES: Right shoulder arthroplasty. IMPRESSION: 1. No acute cardiopulmonary findings. 2. Right shoulder arthroplasty. /[place] DICTATED BY: DARNELL HENDRIX MD DATE: 04/20/251133 ELECTRONICALLY SIGNED BY: DARNELL HENDRIX MD DATE: 04/20/25 113 PLAN Patient pending admit to [facility] with telemetry We are encouraging patient to use her O2 Pending ABG, patient to be evaluated for hypoventilation syndrome. Likely needs home CPAP or greater Pending a BNP, if elevated we will resume Lasix D-dimer in ultrasound lower extremities are pending Patient will need a 6 minute walk prior to discharge Sliding scale insulin Diabetic diet NEURO: Minimize central acting medications as possible. Maintain fall precautions, adequate lighting during the day PULMONARY: Supplemental 02 as needed. Maintain aspiration precautions at all times CARDIOVASCULAR: Follow hemodynamics. Vital signs per facility protocol GI & NUTRITION: Continue with nutritional support. Continue stool softeners and laxatives as needed. KIDNEYS & ELECTROLYTES: Strict monitoring of intake, output and overall fluid balance. Avoid nephrotoxic medications to the extent possible. Medications to be dosed according to renal function. Monitor electrolytes and replace as needed ENDOCRINE: Maintain blood glucose between 100-180 at all times. Hypoglycemia protocol in place INFECTIOUS DISEASE: Trend temperature, WBC and procalcitonin level Follow cultures, deescalate antibiotics as soon as possible. Panculture if new onset fever ONCOLOGY/HEMATOLOGY/COAGULATION: Monitor for s/s of bleeding Monitor hemoglobin, coagulation studies as needed SKIN: Pressure ulcer prevention per facility protocol Specialty mattress ORTHO/REHAB: Continue PT/OT Prophylaxis: Continue GI and DVT prophylaxis Code Status: Full Resuscitation Disposition: Home once medically stable for discharge ATTESTATION BY PHYSICIAN I reviewed the documentation, medical decision making, and treatment plan as noted by the mid-level provider above. I agree with the findings and plan of care. Damián Odonnell MD, ECTOR N FNP Apr 21, 2025 12:31
--- NOTE | 2025-04-21 15:00 | NUR ---
CRITICAL RESULT PATIENT WITH D-DIMER OF 1887. EDWARD RON NP AWARE. VQ SCAN AND BLE VENOUS DOPPLER U/S ORDERED.
--- NOTE | 2025-04-21 16:08 | NUR ---
RAD NUCLEAR MEDICINE SPOKE TO NURSE BRENDA, PATIENT NEEDS A NEW IV STARTED SHE WILL CONTACT ME ONCE IT IS READY.
--- NOTE | 2025-04-21 17:52 | NUR ---
RAD V/Q OF 175HRS [facility] STATES NO IV PLACEMENT. DG EXAM ON HOLD TILL FURTHER NOTICE. DG
[2025-04-22] VITALS (12 sets, daily range): BP systolic 115–134; BP diastolic 50–78; PULSE 58–70; RESP 18–24; TEMP 97.3–98.1; O2SAT 94–100
[2025-04-22 04:32] LABS: NUCLEATED RED BLOOD CELLS 0.0 % (0.0-0.19); PLATELET COUNT (AUTO) 121.0 K/uL (130-400); RED BLOOD CELL COUNT(AUTO) 3.35 MIL/uL (4.00-5.50); RED CELL DISTRIBUTION WIDTH 13.6 % (11.0-15.5); WHITE BLOOD COUNT (AUTO) 5.8 K/uL (4.8-10.8)
[2025-04-22 05:02] LABS: CREATININE 1.4 mg/dL (0.5-1.0); GLOMERULAR FILTR. RATE CALC 41.0 mL/min (>90); GLUCOSE,RANDOM 128.0 mg/dL (70-105); PHOSPHORUS 4.2 mg/dL (2.5-4.9); SODIUM SERUM 138.0 mmol/L (136-145); UREA NITROGEN, BLOOD 49.0 mg/dL (7-18)
--- NOTE | 2025-04-22 05:50 | HMCIMG ---
EXAMINATION: SPECTRAL DOPPLER ULTRASOUND EXAMINATION OF THE BILATERAL LOWER EXTREMITY VEINS. CLINICAL HISTORY: Edema. COMPARISON: Prior ultrasound dated 09/25/2017. TECHNIQUE: Real-time ultrasound scan of the veins of the bilateral lower extremity with color Doppler flow, spectral waveform analysis and compression. FINDINGS: DEEP VEINS: The common femoral, superficial femoral, and popliteal veins are echolucent and compressible. There is normal color Doppler flow throughout. The visualized calf veins appear patent. SUPERFICIAL VEINS: The greater saphenous veins are patent and compressible. SOFT TISSUES: No popliteal fossa cyst or other abnormalities. IMPRESSION: No deep venous thrombosis evident in the bilateral lower extremity. No superficial thrombophlebitis in the bilateral lower extremity. /[place]
--- NOTE | 2025-04-22 11:47 | PN ---
[facility] PROGRESS NOTE Date Patient Seen: Apr 22, 2025 Time of Visit: 11:43 Supervising Physician: [Dr Laguna Primary Care Physician: [ ] Outpatient Specialists: [ ] Inpatient Consults: [ ] PROBLEM LIST: Obesity hyperventilation syndrome untreated Class 3 Morbid obesity BMI 52.5 AFib on apixaban CKD stage 3 Hyperglycemia in a type 2 diabetic General anxiety disorder History of depression Hyperlipidemia INTERVAL HISTORY: Patient is a 69-year-old female who presented to the emergency department reporting shortness of breath, progressive cough and wheezing starting 2 days ago. She has a past medical history of morbid obesity, hypertension, hyperlipidemia, atrial fibrillation. Patient denies any home O2 or CPAP at night. Patient was placed on nasal cannula then advance to a non-rebreather however patient refused. Time of evaluation she is satting 92% on room air. Labs are pending. On exam she has 2+ pitting edema to the lower extremities. Chest x-ray shows some vascular congestion we are pending a BNP. Along with a D-dimer an ultrasounds of the lower extremities. We are pending an ABG. Patient to be admitted to [facility] with telemetry. 04/21 - Today patient is seen sitting up in bed continues to complain of shortness on breath, progressive cough and dyspnea with minimal exertion. Patient reports her wheezing is much improved. Currently patient's O2 sat is 97% on room air. No acute changes reported overnight. Requesting ABGs. We are still pending D-dimer and lower extremity Dopplers. 04/22 - patient is seen sitting up in bed with no signs of acute distress. Patient reports her respiratory has improved since prior to admission. Patient does continue with minimal wheezing. Patient remains on room air and doing well. No acute changes reported overnight. Patient's D-dimer was quite elevat ed therefore lower extremity Dopplers were performed which were negative for DVT. We are currently pending a V/Q scan. Vital signs are stable. Labs are within normal limits. IF V/Q scan results were negative we will plan to DC home. PLAN: Telemetry monitoring Supplemental oxygen as needed Patient currently on room air BiPAP nightly and p.r.n. Pending VQ scan Resume Eliquis 6 minute walk test prior to discharge Diabetic diet PT evaluate and treat Out of bed to chair and ambulate Dispo: Home once medically stable for discharge REVIEW OF SYSTEMS: 12 point ROS reviewed with patient. Pertinent positives mentioned above. Otherwise negative. PHYSICAL EXAM: GENERAL: alert, weak, awake oriented x 3 HEENT: EOMI, Sclera non icteric, moist mucosa NECK: Supple, no JVD, trachea midline LUNGS: Clear breath sounds bilaterally. No wheezes HEART: Regular rate and rhythm. Normal S1 and S2, without murmurs ABD: Abdomen soft, nontender. Bowel sounds present EXT: No clubbing cyanosis or edema NEURO: Alert and oriented to person, follows commands Vital Signs (last 8hr) Date Time Temp Pulse Resp B/P (MAP) Pulse Ox O2 Delivery O2 Flow Rate FiO2 04/22/25 11:21 97.3 60 18 120/54 95 Room Air 04/22/25 11:13 58 20 04/22/25 08:00 97.3 58 18 134/66 94 Room Air 04/22/25 06:33 60 20 N/A Room Air 21 04/22/25 06:30 60 20 04/22/25 04:01 98.1 66 22 121/78 95 Room Air LABS: Hematology Labs: Test 04/22/25 04:15 Range/Units White Blood Count 5.8 4.8-10.8 K/uL Red Blood Count 3.35 L 4.00-5.50 MIL/uL Hemoglobin 10.4 L 12.0-16.0 g/dL Hematocrit 32.5 L 36-48 % Mean Corpuscular Volume 97.0 79-99 fL Mean Corpuscular Hemoglobin 31.0 27.0-33.0 pg Mean Corpuscular Hemoglobin Concent 32.0 32.0-36.0 g/dL Red Cell Distribution Width 13.6 11.0-15.5 % Platelet Count 121 L 130-400 K/uL Mean Platelet Volume 12.8 H 7.5-10.5 fL Nucleated Red Blood Cells 0.0 0.0-0.19 % Chemistry Labs: Test 04/22/25 04:15 04/21/25 12:41 Range/Units Sodium Level 138 136-145 mmol/L Potassium Level 4.3 3.5-5.1 mmol/L Chloride Level 105 101-111 mmol/L Carbon Dioxide Level 26 21-32 mmol/L Blood Urea Nitrogen 49 H 7-18 mg/dL Creatinine 1.4 H 0.5-1.0 mg/dL Glomerular Filtration Rate Calc 41 >90 mL/min Random Glucose 128 H 70-105 mg/dL Total Calcium 8.2 L 8.5-10.1 mg/dL Phosphorus Level 4.2 2.5-4.9 mg/dL Magnesium Level 2.00 1.80-2.40 mg/dL B-Type Natriuretic Peptide 89 0-100 pg/mL Procalcitonin < 0.05 L 0.05-0.5 ng/mL Thyroid Stimulating Hormone (TSH) 0.74 # 0.36-3.74 uIU/mL Coagulation Labs: Test 04/21/25 12:41 Range/Units D-Dimer Quantitative (PE/DVT) 1887 *H 0-500 ng/mL DIAGNOSTICS / RADIOLOGY RESULTS: PATIENT: RONNY KESSLER MR#: [id number] : 1955 SEX: F AGE: 69 LOCATION: [facility] ORDER 25 STATUS: ADM IN REPORT#: [id number] SERVICE 1225 REASON: ble edema ORDERING PHYSICIAN: EDWARD RON STOPPER MAKER PROCEDURE: VENOUS ELVIE - US VENOUS DOPPLER BILATERAL EXAMINATION: SPECTRAL DOPPLER ULTRASOUND EXAMINATION OF THE BILATERAL LOWER EXTREMITY VEINS. CLINICAL HISTORY: Edema. COMPARISON: Prior ultrasound dated 09/25/2017. TECHNIQUE: Real-time ultrasound scan of the veins of the bilateral lower extremity with color Doppler flow, spectral waveform analysis and compression. FINDINGS: DEEP VEINS: The common femoral, superficial femoral, and popliteal veins are echolucent and compressible. There is normal color Doppler flow throughout. The visualized calf veins appear patent. SUPERFICIAL VEINS: The greater saphenous veins are patent and compressible. SOFT TISSUES: No popliteal fossa cyst or other abnormalities. IMPRESSION: No deep venous thrombosis evident in the bilateral lower extremity. No superficial thrombophlebitis in the bilateral lower extremity. /[place] DICTATED BY: TONYA HUI Jr., MD DATE: 04/22/25648 ELECTRONICALLY SIGNED BY: TONYA HUI Jr., MD DATE: 04/22/25648 PLAN Patient pending admit to [facility] with telemetry We are encouraging patient to use her O2 Pending ABG, patient to be evaluated for hypoventilation syndrome. Likely needs home CPAP or greater Pending a BNP, if elevated we will resume Lasix D-dimer in ultrasound lower extremities are pending Patient will need a 6 minute walk prior to discharge Sliding scale insulin Diabetic diet NEURO: Minimize central acting medications as possible. Maintain fall precautions, adequate lighting during the day PULMONARY: Supplemental 02 as needed. Maintain aspiration precautions at all times CARDIOVASCULAR: Follow hemodynamics. Vital signs per facility protocol GI & NUTRITION: Continue with nutritional support. Continue stool softeners and laxatives as needed. KIDNEYS & ELECTROLYTES: Strict monitoring of intake, output and overall fluid balance. Avoid nephrotoxic medications to the extent possible. Medications to be dosed according to renal function. Monitor electrolytes and replace as needed ENDOCRINE: Maintain blood glucose between 100-180 at all times. Hypoglycemia protocol in place INFECTIOUS DISEASE: Trend temperature, WBC and procalcitonin level Follow cultures, deescalate antibiotics as soon as possible. Panculture if new onset fever ONCOLOGY/HEMATOLOGY/COAGULATION: Monitor for s/s of bleeding Monitor hemoglobin, coagulation studies as needed SKIN: Pressure ulcer prevention per facility protocol Specialty mattress ORTHO/REHAB: Continue PT/OT Prophylaxis: Continue GI and DVT prophylaxis Code Status: Full Resuscitation Disposition: Home once medically stable for discharge ATTESTATION BY PHYSICIAN I attest that I reviewed and discussed the case with the Physician Rating Clerk as well as agree with the Physician Rating Clerk's findings, plans of care, and documentation above. Florin Lund MD, ECTOR N FNP Apr 22, 2025 11:47
[2025-04-22] MEDS: LACTULOSE 20 GM/30 ML UDCUP PO PRN (13:39)
--- NOTE | 2025-04-22 15:01 | HMCIMG ---
EXAM: NM Lung Perfusion Scan. CLINICAL HISTORY: ELEVATED D-DIMER TECHNIQUE: Radiolabeled MAA was administered intravenously and planar images of the lungs were obtained in multiple projections. RADIOPHARMACEUTICAL: COMPARISON: None provided. FINDINGS: PERFUSION: No segmental perfusion defect. IMPRESSION: No perfusion defects to indicate pulmonary emboli. /[place]
[2025-04-22] MEDS: LOPERAMIDE HCL 2 MG CAP PO PRN (18:57)
[2025-04-23] VITALS (10 sets, daily range): BP systolic 100–122; BP diastolic 45–71; PULSE 57–65; RESP 16–20; TEMP 97.5–97.9; O2SAT 94–99
--- NOTE | 2025-04-23 12:30 | DS ---
[facility] DISCHARGE SUMMARY Date Patient Seen: Apr 23, 2025 Time of Visit: 12:23 Supervising Physician: [Dr Laguna Primary Care Physician: [ ] Outpatient Specialists: [ ] Inpatient Consults: [ ] PROBLEM LIST: Obesity hyperventilation syndrome untreated- stable Class 3 Morbid obesity BMI 52.5 AFib on apixaban CKD stage 3 Hyperglycemia in a type 2 diabetic General anxiety disorder History of depression Hyperlipidemia HOSPITAL COURSE: HPI (per admitting provider) Patient is a 69-year-old female who presented to the emergency department reporting shortness of breath, progressive cough and wheezing starting 2 days ago. She has a past medical history of morbid obesity, hypertension, hyperlipidemia, atrial fibrillation. Patient denies any home O2 or CPAP at night. Patient was placed on nasal cannula then advance to a non-rebreather however patient refused. Time of evaluation she is satting 92% on room air. Labs are pending. On exam she has 2+ pitting edema to the lower extremities. Chest x-ray shows some vascular congestion we are pending a BNP. Along with a D-dimer an ultrasounds of the lower extremities. We are pending an ABG. Patient to be admitted to [facility] with telemetry. 04/21 - Today patient is seen sitting up in bed continues to complain of shortness on breath, progressive cough and dyspnea with minimal exertion. Patient reports her wheezing is much improved. Currently patient's O2 sat is 97% on room air. No acute changes reported overnight. Requesting ABGs. We are still pending D-dimer and lower extremity Dopplers. 04/22 - patient is seen sitting up in bed with no signs of acute distress. Patient reports her respiratory has improved since prior to admission. Patient does continue with minimal wheezing. Patient remains on room air and doing well. No acute changes reported overnight. Patient's D-dimer was quite elevated therefore lower extremity Dopplers were performed which were negative for DVT. We are currently pending a V/Q scan. Vital signs are stable. Labs are within normal limits. IF V/Q scan results were negative we will plan to DC home. Today, patient is seen sitting up in bed with no signs of acute distress. Patient has remained on room air since admission. PT reports her respiratory status is back to baseline. NO acute changes reported overnight. Patient has been ambulating around the room without assistance therefore does not qualify for placement for rehab. Patient had a VQ scan and results were negative. PT had lower extremity dopplers and results were negative. Vital signs are stable. Labs are within normal limits. Patient has been advised to follow up with PCP in the next 1-2 days. Med rec has been completed. Education has been provided to the patient. All questions have been answered. Pt to be discharged home. The patient was treated for the following problems: ACTIVE PROBLEM LIST FOR THE HOSPITALIZATION: Obesity hyperventilation syndrome untreated- stable Class 3 Morbid obesity BMI 52.5 AFib on apixaban CKD stage 3 Hyperglycemia in a type 2 diabetic General anxiety disorder History of depression Hyperlipidemia CHRONIC PROBLEMS: continue previous management per PCP unless otherwise indica daljit SENIOR CORPORATE ACCOUNTANT FINDINGS/RECOMMENDATIONS: [ ] PROCEDURES: as mentioned above DISCHARGE MEDICATIONS: See Dc Med rec Pt hemodynamically stable and afebrile at time of discharge. PCP notified of patients admission, hospital course and discharge. Continued Medications: Albuterol Sulfate (Proair Respiclick) 90 Mcg Aer.pow.[email or web address] 90 MCG IH AD PRN for SHORTNESS OF BREATH Apixaban (Eliquis) 5 Mg Tablet 1 TAB PO BID for 30 Days, #60 TAB 0 Refills Atorvastatin Calcium (Lipitor) 40 Mg Tablet 40 MG PO DAILY, TAB Escitalopram Oxalate (Escitalopram Oxalate) 10 Mg Tablet 1 TAB PO DAILY for 30 Days, #30 TAB 0 Refills Ferrous Sulfate (Ferrous Sulfate) 325 Mg (65 Mg Iron) Tablet 1 TAB PO DAILY Furosemide (Furosemide) 40 Mg Tablet 40 MG PO DAILY, TAB Gabapentin (Gabapentin) 400 Mg Capsule 300 MG PO TID, CAP Pantoprazole Sodium (Pantoprazole Sodium) 40 Mg Tablet.dr 1 TAB PO DAILY for 30 Days, #30 TAB 0 Refills Solifenacin Succinate (Vesicare) 10 Mg Tablet 10 MG PO BID, TAB PHYSICAL EXAM: GENERAL: alert, weak, awake oriented x 3 HEENT: EOMI, Sclera non icteric, moist mucosa NECK: Supple, no JVD, trachea midline LUNGS: Clear breath sounds bilaterally. No wheezes HEART: Regular rate and rhythm. Normal S1 and S2, without murmurs ABD: Abdomen soft, nontender. Bowel sounds present EXT: No clubbing cyanosis or edema NEURO: Alert and oriented to person, follows commands FOLLOW-UP: Follow-up with PCP in 2-3 days RECOMMENDATIONS: See Discharge Instructions This case was seen and discussed with my supervising physician. More than 30 minutes spent on discharge process, including evaluation of the patient, discussion with nursing staff, medication reconciliation and follow-up appointments ATTESTATION BY PHYSICIAN I attest that I reviewed and discussed the case with the Physician Recreational Director as well as agree with the Physician Recreational Director's findings, plans of care, and documentation above. Florin Lund MD, ECTOR N [employer] RAIL[employer]OR MECHANIC Apr 23, 2025 12:30
--- NOTE | 2025-04-23 15:15 | NUR ---
DISCHARGE MIDLINE IV REMOVED DISCHARGE EDUCATION AND INSTRUCTIONS PROVIDED TO PATIENT PATIENT AWARE TO FOLLOW UP WITH PCP IN 1 WEEK PATIENT AWARE TO CONTINUE HOME MEDICATIONS DIRECTED BY MD ALL QUESTIONS ANSWERED
== END 2025-04-23 15:25 | disposition home or self-care (01) ==
LOC: EDH 08:32 → EDHIP 10:52 → 3AH 16:00
PROVIDERS: ADMIT Internal Medicine Pulmonary Disease; ATTEND Internal Medicine Pulmonary Disease
DX: I48.91 Unspecified atrial fibrillation (principal); I12.9 Hypertensive chronic kidney disease with stage 1 through stage 4 chronic kidney disease, or unspecified chronic kidney disease; N18.30 Chronic kidney disease, stage 3 unspecified; E11.22 Type 2 diabetes mellitus with diabetic chronic kidney disease; E11.65 Type 2 diabetes mellitus with hyperglycemia; E66.01 Morbid (severe) obesity due to excess calories; E78.5 Hyperlipidemia, unspecified; F41.1 Generalized anxiety disorder; F45.8 Other somatoform disorders; R60.0 Localized edema; Z68.43 Body mass index [BMI] 50.0-59.9, adult; Z79.01 Long term (current) use of anticoagulants; Z90.710 Acquired absence of both cervix and uterus; Z96.611 Presence of right artificial shoulder joint; Z20.822 Contact with and (suspected) exposure to COVID-19; Z79.899 Other long term (current) drug therapy; Z98.890 Other specified postprocedural states
CPT/HCPCS: 96374; 96375 ×3; 82550; 80076; 84484; 80048 ×2; 83880 ×2; 85025; 87040 ×2; 87804 ×2; 83605; 87426; 36415 ×3; 71045; 99291; 93005; 94640; 84145 ×2; 96376 ×3; 36410; 84443; 85378; 93970; 83735; 84100; 85027; 78582; 97161; 97116; G0378 ×76; J7040; J3010; J2919; Q0163 ×3; J2405; C1750; J1885 ×4; C1894; J1200; A9540; A9558; 36556; 94664